=== PATIENT | male | born 1950 | race Caucasian/White ===

== ENCOUNTER 2024-07-13 17:13 | Inpatient (IN) | payer MEDICARE, SELFPAY ==
[2024-07-13] VITALS (9 sets, daily range): BP systolic 99–139; BP diastolic 54–69; PULSE 38–82; RESP 18–22; TEMP 36.8; O2SAT 97–99; BMI 45.0
--- NOTE | 2024-07-13 17:15 | ECG_ITS ---
[facility] Date: 2024-07-13 Pat Name: Benjamin Robles Department: Room: Gender: Male Young Adult Librarian: : 1950 Requested By: Iggy Ramos Order Number: [id number] Rizwana MD: Paul Knutson M.D. Measurements Intervals [place] Rate: 87 P: 95 ND: 232 QRS: -66 QRSD: 152 T: 71 QT: 442 QTc: 532 Interpretive Statements ELECTRONIC ATRIAL PACEMAKER RIGHT BUNDLE BRANCH BLOCK [120+ ms QRS DURATION, UPRIGHT V1, 40+ ms S IN I/aVL/V4/V5/V6] LEFT ANTERIOR FASCICULAR BLOCK [QRS AXIS <= -45, QR IN I, RS IN II] No previous ECG available for comparison Electronically Signed On 07-13-2024 20:03:11 IT WEB DEVELOPMENT CONSULTANT by Paul Knutson M.D. [id number]
--- NOTE | 2024-07-13 17:17 | XRR_ITS ---
PROCEDURE INFORMATION: Exam: XR Chest Exam date and time: 07/13/2024 5:30 PM Age: 74 years old Clinical indication: Shortness of breath; Prior surgery; Surgery date: 6+ months; Surgery type: Pacemaker, cabg; Additional info: Respiratory distress; Bradycardia. TECHNIQUE: Imaging protocol: Radiologic exam of the chest. Views: 1 view. COMPARISON: No relevant prior studies available. FINDINGS: Tubes, catheters and devices: Left-sided cardiac pacemaker device. Lungs: No focal consolidation. Pleural spaces: Unremarkable. No pleural effusion. No pneumothorax. Heart/Mediastinum: Prior TAVR. The TAVR cage appears unexpectedly superior in the cardiac shadow. Correlate with prior imaging of the chest if available. Bones/joints: Unremarkable. XR/XR chest 1V portable [id number] IMPRESSION: 1. Prior TAVR. The TAVR cage appears unexpectedly superior in the right upper cardiac shadow. Correlate with prior imaging of the chest if available. A chest with contrast can also be obtained to confirm positioning of the TAVR. 2. No focal consolidation.
--- NOTE | 2024-07-13 17:33 | ED_ITS ---
HPI - General Adult 2 General: Chief complaint: General Medical Stated complaint: migdalia; hypotension Time Seen by Provider: 07/13/24 17:16 Source: patient and EMS Mode of arrival: EMS Limitations: no limitations History of Present Illness: 74-year-old male states he just has not felt well the last 2 days states he is felt weak and had some fatigue he has had a history of a pacemaker per EMS patient was flown here they state that the original ground crew said he was hypotensive bradycardic EMS states that the whole time they have been with them he has had a normal heart rate and normal blood pressure has not been given any meds. Patient denies any chest pain or vomiting states he just has not felt well history of bilateral BKA as well Associated symptoms: Reports malaise; Deny chest pain, dyspnea, headache(s), nausea, rash or vomiting Review of Systems 2 Const: Reports: fatigue and malaise; Denies: fever(s), chills, body aches or change in appetite ENMT: Denies: throat pain or dental pain Card: Denies: chest pain Resp: Denies: dyspnea GI: Denies: abdominal pain, nausea, vomiting or diarrhea : Denies: dysuria Musc: Denies: neck pain or back pain Skin/Breast: Denies: rash Neuro: Denies: headache(s) Psych: Denies: depression [place]/Lymph: Denies: easy bruising All/Imm: Denies: urticaria Physical Exam 2 Const: COMMON NORMALS: patient oriented x3 HENMT: COMMON NORMALS: normocephalic and atraumatic HEAD & SCALP: n ormocephalic and atraumatic Eye: COMMON NORMALS: Equal, round and reactive pupils present and EOMs intact bilaterally PUPIL: Yes Equal, round and reactive pupils present Neck/C-Spine: COMMON NORMALS: full ROM and supple Chest: COMMONS NORMALS: normal inspection of the chest and normal palpation of entire chest wall Resp: COMMON NORMALS: normal respiratory effort, No retractions, No use of accessory muscles and clear to auscultation bilaterally AUSCULTATION: clear to auscultation bilaterally Cardio: COMMON NORMALS: regular rate, regular rhythm and No murmurs present (Cardio) RATE: regular rate RHYTHM: regular rhythm GI: COMMON NORMALS: Normal to inspection, nondistended, normoactive bowel sounds present, Soft to palpation, non-tender and no masses PALPATION: Yes Soft to palpation Extremity: COMMON NORMALS: normal to inspection and full ROM Neuro: COMMON NORMALS: patient oriented x3, moves all extremities and no focal motor deficits Psych: COMMON NORMALS: mental status grossly normal, Normal thought process present and cooperative THOUGHT PROCESS: Normal thought process present Skin: COMMON NORMALS: no rashes or lesions noted and no wounds GENERAL SKIN EXAM: no rashes or lesions noted Course 2 Vital Signs: Vital signs: Vital Signs Temperature 98.2 F 07/13/24 17:18 Pulse Rate 79 07/13/24 21:00 Respiratory Rate 20 H 07/13/24 17:49 Blood Pressure 99/54 07/13/24 21:00 Pulse Oximetry 98 07/13/24 21:00 Oxygen Delivery Me thod Room Air 07/13/24 21:00 MDM - General Adult Medical Decision Making Patient presents here with concerns of bradycardia at home states he has had heart rate in the 30s over the last 3 days pacemaker is functioning well here he was found to have an elevated BNP and pleural effusions I spoke to hospitalist will admit at this time. Medical Records I reviewed the patient's medical records. Lab Data 07/13/24 18:03 07/13/24 18:03 Radiology Impressions Chest X-Ray 07/13/24 17:17 IMPRESSION: 1. Prior TAVR. The TAVR cage appears unexpectedly superior in the right upper cardiac shadow. Correlate with prior imaging of the chest if available. A chest with contrast can also be obtained to confirm positioning of the TAVR. 2. No focal consolidation. Chest CTA 07/13/24 19:14 IMPRESSION: 1. Prior TAVR is in appropriate position. 2. No pulmonary emboli. 3. Large bilateral pleural effusions. COMMENTS: The presence of pulmonary emphysema on CT is an independent risk factor for lung cancer. In the absence of a history or active diagnosis of lung cancer, it is recommended that this patient with emphysema be evaluated for enrollment in a low dose CT lung cancer screening program. Laboratory Results WBC 7.00 10^3/uL (3.29-11.43) 07/13/24 18:03 RBC 4.22 10^6/uL (3.85-5.65) 07/13/24 18:03 Hgb 12.00 g/dL (11.27-16.99) 07/13/24 18:03 Hct 38.3 % (37-53) 07/13/24 18:03 MCV 90.8 fl (82-101) 07/13/24 18:03 MCH 28.4 pg (27-33) 07/13/24 18:03 MCHC 31.3 g/dL (30-55) 07/13/24 18:03 RDW 16.1 % (12.1-15.1) H 07/13/24 18:03 Plt Count 157 10^3/cmm (157-399) 07/13/24 18:03 MPV 9.9 fL (7.4-10.4) 07/13/24 18:03 Neut % (Auto) 53.7 % 07/13/24 18:03 Lymph % (Auto) 34.9 % 07/13/24 18:03 [place] % (Auto) 6.7 % 07/13/24 18:03 Eos % (Auto) 3.7 % 07/13/24 18:03 Baso % (Auto) 0.7 % 07/13/24 18:03 Neut # (Auto) 3.76 10^3/uL (1.8-7.7) 07/13/24 18:03 Lymph # (Auto) 2.4 10^3/uL (0.8-4.8) 07/13/24 18:03 [place] # (Auto) 0.5 10^3/uL (0.2-0.9) 07/13/24 18:03 Eos # (Auto) 0.3 10^3/uL (0.0-0.8) 07/13/24 18:03 Baso # (Auto) 0.1 10^3/uL (0.0-0.1) 07/13/24 18:03 Nucleated RBC % (auto) 0 % 07/13/24 18:03 Nucleated RBCs # 0.0 /100WBC 07/13/24 18:03 PT 13.00 SECONDS (12.1-14.9) 07/13/24 18:03 INR 0.96 (0.8-1.2) 07/13/24 18:03 Sodium 141 mmol/L (136-145) 07/13/24 18:03 Potassium 4.1 mmol/L (3.5-5.1) 07/13/24 18:03 Chloride 109 mmol/L (98-107) H 07/13/24 18:03 Carbon Dioxide 23 mmol/L (22-29) 07/13/24 18:03 Anion Gap 13.1 (5-19) 07/13/24 18:03 BUN 17 mg/dL (8-23) 07/13/24 18:03 Creatinine 0.6 mg/dL (0.7-1.2) L 07/13/24 18:03 GFR Calculation Not Reportable 07/13/24 18:03 Glucose 105 mg/dL (65-115) 07/13/24 18:03 Calculated Osmolality 294 mOsm/kg (285-295) 07/13/24 18:03 Calcium 9.0 mg/dL (8.5-10.5) 07/13/24 18:03 Total Bilirubin 0.3 mg/dL (0.15-1.2) 07/13/24 18:03 AST 13 U/L (0-40) 07/13/24 18:03 ALT 14 U/L (0-41) 07/13/24 18:03 Alkaline Phosphatase 89 U/L (40-130) 07/13/24 18:03 Troponin T Baseline 48 ng/L (0-15) H 07/13/24 18:03 Troponin T 120 Minute 42.70 ng/L (0-15) H 07/13/24 20:17 Delta Troponin T -5.30 ABS# (0-10) L 07/13/24 20:17 NT-Pro-B Natriuret Pep 71885 pg/mL (0-450) H 07/13/24 18:03 Total Protein 6.0 g/dL (6.6-8.7) L 07/13/24 18:03 Albumin 3.5 g/dL (3.5-5.2) 07/13/24 18:03 Globulin 2.5 g/dL (1.3-4.6) 07/13/24 18:03 Coronavirus (PCR) Negative (Negative) 07/13/24 18:36 Influenza A (PCR) Negative (Negative) 07/13/24 18:36 Influenza Type B (PCR) Negative (Negative) 07/13/24 18:36 RSV (PCR) Negative (Negative) 12/29/24 18:36 All radiology interpretation(s) finalized by discharge EKG Data EKG 1: I personally reviewed and interpreted this EKG as follows: EKG interpretation date: 07/13/24 EKG interpretation time: 17:15 Interpretation: paced hr [address] elevation qrs 152 [id number] Computer generated interpretation: Chest X-Ray 07/13/24 17:17 IMPRESSION: 1. Prior TAVR. The TAVR cage appears unexpectedly superior in the right upper cardiac shadow. Correlate with prior imaging of the chest if available. A chest with contrast can also be obtained to confirm positioning of the TAVR. 2. No focal consolidation. Chest CTA 07/13/24 19:14 IMPRESSION: 1. Prior TAVR is in appropriate position. 2. No pulmonary emboli. 3. Large bilateral pleural effusions. COMMENTS: The presence of pulmonary emphysema on CT is an independent risk factor for lung cancer. In the absence of a history or active diagnosis of lung cancer, it is recommended that this patient with emphysema be evaluated for enrollment in a low dose CT lung cancer screening program. Discharge Plan Discharge Patient Disposition: Admitted As Inpatient Clinical Impression: Pleural effusion, CHF (congestive heart failure), Bradycardia Condition: Stable Coding Level of Care Code ED International Marketing Coordinator for Quintin Ornelas
[2024-07-13 18:17] LABS: Basophils # 0.1 10^3/uL (0.0-0.1); Basophils % 0.7 %; Eosinophils # 0.3 10^3/uL (0.0-0.8); Eosinophils % 3.7 %; Hematocrit 38.3 % (37-53); Lymphocytes # 2.4 10^3/uL (0.8-4.8); Lymphocytes % 34.9 %; Mean Corpuscular HGB Conc 31.3 g/dL (30-55); Mean Corpuscular Hemoglobin 28.4 pg (27-33); Mean Corpuscular Volume 90.8 fl (82-101); Mean Platelet Volume 9.9 fL (7.4-10.4); Monocytes # 0.5 10^3/uL (0.2-0.9); Monocytes % 6.7 %; Neutrophils # 3.76 10^3/uL (1.8-7.7); Neutrophils % 53.7 %; Nucleated Red Blood Cells % 0 %; Platelet Count 157 10^3/cmm (157-399); Red Blood Count 4.22 10^6/uL (3.85-5.65); Red Cell Distribution Width 16.1 % (12.1-15.1)
[2024-07-13 18:30] LABS: INR 0.96 (0.8-1.2)
[2024-07-13 18:36] LABS: Troponin(5th) Baseline 48 ng/L (0-15)
[2024-07-13 18:49] LABS: Alanine Aminotransferase 14 U/L (0-41); Albumin Level 3.5 g/dL (3.5-5.2); Alkaline Phosphatase 89 U/L (40-130); Anion Gap 13.1 (5-19); Aspartate Amino Transferase 13 U/L (0-40); Blood Urea Nitrogen 17 mg/dL (8-23); Carbon Dioxide 23 mmol/L (22-29); Chloride 109 mmol/L (98-107); Creatinine Clr Calc Pharmacy 90.7189; Globulin 2.5 g/dL (1.3-4.6); Glucose 105 mg/dL (65-115); NT Pro B Type Natriuretic Pept 11071 pg/mL (0-450); Osmolality Calculated 294 mOsm/kg (285-295); Potassium 4.1 mmol/L (3.5-5.1); Sodium 141 mmol/L (136-145); Total Bilirubin 0.3 mg/dL (0.15-1.2)
--- NOTE | 2024-07-13 19:14 | CTR_ITS ---
PROCEDURE INFORMATION: Exam: CTA Chest With Contrast Exam date and time: 07/13/2024 7:54 PM Age: 74 years old Clinical indication: Chest pressure; Prior surgery; Surgery date: 6+ months; Surgery type: Pacer. Tavr. Lt humeral fixation; Patient HX: Chest pain with hypotension; Additional info: Cp/ tavr positioning TECHNIQUE: Imaging protocol: Computed tomographic angiography of the chest with contrast. Exam focused on the arteries. 3D rendering (Not supervised by radiologist): MIP and/or 3D reconstructed images were created by the technologist. Radiation optimization: All CT scans at this facility use at least one of these dose optimization techniques: automated exposure control; mA and/or kV adjustment per patient size (includes targeted exams where dose is matched to clinical indication); or iterative reconstruction. Contrast material: OMNI 350; Contrast volume: 71 ml; Contrast route: INTRAVENOUS (IV); COMPARISON: CR (CHEST, ) 07/13/2024 5:30 PM RADIATION DOSE METRICS: Total DLP (mGy-cm): 517.35 FINDINGS: Pulmonary arteries: No pulmonary emboli. Great vessels off aortic arch: Severe stenosis secondary to calcified plaque at the origin of the right brachiocephalic artery, left subclavian artery and left carotid artery. Aorta: Unremarkable. No aortic aneurysm. No aortic dissection. Lungs: Severe emphysematous changes throughout both lungs with an upper lobe predominance. Pleural spaces: Large bilateral pleural effusions. Heart: Prior TAVR in appropriate position. Lymph nodes: Unremarkable. No enlarged lymph nodes. Bones/joints: Prior median sternotomy and CABG. Soft tissues: Unremarkable. CT/CT angio chest PE protcl [id number] IMPRESSION: 1. Prior TAVR is in appropriate position. 2. No pulmonary emboli. 3. Large bilateral pleural effusions. COMMENTS: The presence of pulmonary emphysema on CT is an independent risk factor for lung cancer. In the absence of a history or active diagnosis of lung cancer, it is recommended that this patient with emphysema be evaluated for enrollment in a low dose CT lung cancer screening program.
--- NOTE | 2024-07-13 19:15 | ECG_ITS ---
[facility] Test Date: 2024-07-13 Pat Name: Benjamin Robles Department: Room: Gender: Male Icu Specialist: : 1950 Requested By: Iggy Ramos Order Number: [id number] Rizwana MD: Paul Knutson M.D. Measurements Intervals [place] Rate: 85 P: 94 MN: 225 QRS: -65 QRSD: 149 T: 71 QT: 459 QTc: 549 Interpretive Statements ELECTRONIC ATRIAL PACEMAKER RIGHT BUNDLE BRANCH BLOCK [120+ ms QRS DURATION, UPRIGHT V1, 40+ ms S IN I/aVL/V4/V5/V6] LEFT ANTERIOR FASCICULAR BLOCK [QRS AXIS <= -45, QR IN I, RS IN II] MODERATE T-WAVE ABNORMALITY, CONSIDER LATERAL ISCHEMIA [-0.1+ mV T-WAVE IN I/aVL/V5/V6] Compared to ECG 07/13/2024 17:15:37 T-wave abnormality now present Possible ischemia now present Electronically Signed On 07-13-2024 20:10:25 MICROSOFT EXCHANGE ARCHITECT by Paul Knutson M.D. [id number]
[2024-07-13 19:25] LABS: Covid PCR NEGATIVE (Negative); Influenza A NEGATIVE (Negative); Influenza B NEGATIVE (Negative); Respiratory Syncytial Virus Ce NEGATIVE (Negative)
[2024-07-13] MEDS: iohexol 350 mg/mL 500 mL Btl (per mL) IV (19:58)
--- NOTE | 2024-07-13 21:15 | P.HP_ITS ---
Providers/Chief Complaint 2 Admitting Physician: Vida Thomas MD Chief Complaint: migdalia; hypotension History of Present Illness Reference Services Head - Dr. Moore The patient's daughter was at bedside and called her mother, the patient's , to help provide some history. Patient is not the best historian. Although patient's was called, perhaps it is because it is late at night, but the patient's and daughter were not the most exact historians. Benjamin Robles is a 74 year old male w/ 2v CABG, TAVR s/p valve replacement, CAD s/p stents, b/l AKA in 07/2023 at [place], [place], [facility] who presents to [facility] on 07/13/2024 for low Heart rate. The patient states that his home health nurse was at his hous on Wednesday 07/11 and noticed that his HR was 36 and referred him to the hospital. He went to [facility] where he was evaluated and told that his HR was fine and that he was just constipated. The patient states that he was feeling bad on Sunday and it worsened on Sunday and it showed that his HR was between 38 & 44, so his called EMS who had him transported here via helicopter. Associated w/ his malaise is SOB, abd pain, & nausea. He denies palpitations, dizziness, light headedness, syncope, coughing, wheezing, vomiting, melena, hematochezia, dysuria, hematuria. He endorses non-pleuritic, non-radiating intermittent CP that occurs once a week and resolves w/ SL NTG. He tells me that he used to get his care primarily at [facility] in [place] and at [facility], where he used to see the current Reference Services Head. He has not followed up with Cardiology his Reference Services Head, who now works here, left [facility]. According to the patient's , the patient's pacemaker was last replaced 12- 13yrs ago. In the ED, his vital signs were significant for heart rate as low as 38 and a RR of 22. His BP remained within normal limits. His labs were significant for a BNP of 11,000. His EKG showed paced rhythm with [address] depression in V4 and V5. He has a QTc of 532. His Trop T were mildly elevated. His CXR was done that was negative for any focal consolidations, but there was concern for the location of his TAVR, so a CT chest was done. The CT chest showed that his TAVR was in the appropriate position. It also showed severe emphysematous changes throughout the lungs with an upper lobe predominance, and large bilateral pleural effusions. He was given 60 mg furosemide IVP x 1 and admitted. On admission, he had multiple episodes of hypotension, and was given a total of 3 boluses of NS 500 for the total of 1500 cc of NS. Each time his BP and HR improved. Daughter feels that his BP did not drop until he got the Lasix. Review of Systems 2 Const: Denies: fever(s) or chills Eyes: Denies: change in vision ENMT: Denies: odynophagia, ear or mastoid pain, ear discharge, nasal discharge or nasal congestion Card: Reports: chest pain; Denies: palpitations, lightheadedness, syncope or pre-syncope Resp: Reports: dyspnea; Denies: productive cough, non-productive cough or wheezing GI: Reports: abdominal pain and nausea; Denies: vomiting, diarrhea, constipation, hematochezia or melena : Denies: difficulty urinating, dysuria, urinary frequency, urinary urgency or hematuria Musc: Reports: back pain Skin/Breast: Reports: new lesions (on his back and buttocks); Denies: rash Neuro: Denies: headache(s) or dizziness Psych: Denies: anxiety, depression, suicidal ideation or homicidal ideation Endo: Reports: cold intolerance and heat intolerance Austin/Lymph: Reports: easy bruising and easy bleeding All/Imm: Denies: food intolerance Medications/Allergies Home Medications Medication Instructions Recorded Confirmed Last Taken Type albuterol 90 mcg/actuation aerosol 90 mcg inhalation Q6H PRN 07/13/24 07/13/24 Unknown History inhaler Shortness Of Breath Or Wheezing aspirin 81 mg tablet,delayed 81 mg PO DAILY 07/13/24 07/13/24 Unknown History release carvedilol 3.125 mg tablet 3.125 mg PO BID 07/13/24 07/13/24 Unknown History citalopram 20 mg tablet 20 mg PO DAILY 07/13/24 07/13/24 Unknown History clopidogrel 75 mg tablet 75 mg PO DAILY 07/13/24 07/13/24 Unknown History diphenhydramine 25 1 tab PO BEDTIME PRN Insomnia 07/13/24 07/13/24 Unknown History mg-acetaminophen 500 mg tablet (Tylenol PM Extra Strength) ezetimibe 10 mg tablet 10 mg PO BEDTIME 07/13/24 07/13/24 Unknown History famotidine 40 mg tablet 40 mg PO DAILY 07/13/24 07/13/24 Unknown History fenofibrate 160 mg tablet 160 mg PO BEDTIME 07/13/24 07/13/24 Unknown History ferrous sulfate 324 mg (65 mg 324 mg PO DAILY 07/13/24 07/13/24 Unknown History iron) tablet,delayed release furosemide 40 mg tablet 40 mg PO DAILY 07/13/24 07/13/24 Unknown History hydrocodone 10 mg-acetaminophen 2 tab PO Q6H PRN Pain 07/13/24 07/13/24 Unknown History 325 mg tablet menthol 0.44 %-zinc oxide 20.6 % 1 applic topical DAILY PRN skin 07/13/24 07/13/24 Unknown History topical ointment (Calmoseptine) irritation midodrine 5 mg tablet 5 mg PO TID 07/13/24 07/13/24 Unknown History nitroglycerin 0.4 mg sublingual 0.4 mg sublingual Q5MIN PRN Chest 07/13/24 07/13/24 Unknown History tablet (Nitrostat) Pain ondansetron 4 mg disintegrating 4 mg PO Q4H PRN Nausea And Vomiting 07/13/24 07/13/24 Unknown History tablet pantoprazole 40 mg tablet,delayed 40 mg PO DAILY 07/13/24 07/13/24 Unknown History release (Protonix) pentoxifylline 400 mg 400 mg PO TID 07/13/24 07/13/24 Unknown History tablet,extended release pregabalin 100 mg capsule 100 mg PO TID 07/13/24 07/13/24 Unknown History ranolazine 500 mg tablet,extended 500 mg PO BID 07/13/24 07/13/24 Unknown History release,12 hr rosuvastatin 40 mg tablet 40 mg PO BEDTIME 07/13/24 07/13/24 Unknown History tamsulosin 0.4 mg capsule 0.4 mg PO DAILY 07/13/24 07/13/24 Unknown History tiotropium bromide 2.5 2 puff inhalation DAILY 07/13/24 07/13/24 Unknown History mcg/actuation mist for inhalation Allergies Allergy/AdvReac Type Severity Reaction Status Date / Time ticagrelor Allergy Unknown unknown Verified 07/14/24 03:33 gemfibrozil Allergy Unknown Verified 07/14/24 03:33 Lorazepam Allergy Unknown unknown Uncoded 07/14/24 03:33 Sacubitril/Valsartan Allergy Unknown unknown Uncoded 07/14/24 03:33 PFSH Acute 2 PFSH: Medical History (Updated 07/14/24 @ 05:43 by Vida Thomas MD) COPD (chronic obstructive pulmonary disease) Muscular dystrophy Surgical History (Updated 07/14/24 @ 05:41 by Vida Thomas MD) History of surgery on arm Hx of CABG Family History (Updated 07/14/24 @ 03:40 by Vida Thomas MD) Father Cancer Mother Heart disease Brother Lung cancer Social History (Updated 07/14/24 @ 03:38 by Vida Thomas MD) Smoking and tobacco/nicotine status: current every day tobacco/nicotine user Alcohol intake: former Year of sobriety/quit date alcohol: 2008 Substance/Drug Use: never Additional social history: started 1ppd at age 12 until 1992. Started again 1ppd in 2009 to current. Vitals/I&O/Wt Last Vital Signs Temp 98.2 F 07/13/24 17:18 Pulse 79 07/13/24 21:00 Resp 20 H 07/13/24 17:49 BP 99/54 07/13/24 21:00 Pulse Ox 98 07/13/24 21:00 O2 Del Method Room Air 07/13/24 21:00 07/13/24 07/13/24 07/13/24 06:59 14:59 22:59 Intake Total 0 / 0 Balance 0 / 0 Weight last 48 hrs Weight 81.647 kg Physical Exam 2 Const: GENERAL APPEARANCE: cooperative and comfortable O RIENTATION/CONSCIOUSNESS: Yes awake, Yes oriented to person, Yes oriented to place and Yes oriented to time HENMT: HEAD & SCALP: normocephalic and atraumatic NOSE: Normal external nose present EXTERNAL EAR: Yes external ears normal MOUTH: Normal oral and palatal mucosa present Eye: OTHER: PEERL, EOMI, normal conjunctiva b/l Neck/C-Spine: GENERAL: Yes normal visual inspection and Yes trachea midline THYROID: Thyroid normal CERVICAL SPINE: Yes cervical ROM normal OTHER: R. carotid bruit Lymph: OTHER: No cervical or supraclavicular LAD Resp: AUSCULTATION: not clear to auscultation bilaterally Cardio: OTHER: Regular rate, Irregular Rhytm, no m/r/g or clicks GI: OTHER: BS +, NT, ND, no guarding, no rigidity, no rebound tenderness, no hepatosplenomegaly. Extremity: OTHER: b/l AKA w/ healed stumps Skin: GENERAL SKIN EXAM: no rashes or lesions noted Data 07/13/24 18:03 07/13/24 18:03 A&P Assessment and plan (1) Hypotension: (2) Bradycardia: (3) Pleural effusion: Plan Benjamin Robles is a 74 year old male w/ 2v CABG, TAVR s/p valve replacement, CAD s/p stents, b/l AKA in 07/2023 at [place], [place], due who presents to [facility] on 07/13/2024 for low Heart rate. #Hypotension - Unclear etiology: F/u ECHO and BCx ordered. - Continue giving fluid boluses. #Bradycardia - Possibly due to End of life of pacemaker? -Interrogate the pacemaker: Per his night admitting nurse, [employer], [place] [employer], [place] interrogated were attempted in the ED with no success. Daughter says [employer]? . Will need to obtain outside records. -Cardiology consult in the AM. #CAD s/p stents: Patient states 4-5 stents, but the states 3-4 stents. #HTN #HLD #CHF : Unclear type. F/u ECHO - Hold all anti-hypertensives. -Strict I's and O's. #Peripheral Vascular Disease #Valve replacement: The patient thinks that it is aortic valve, but the states that it is mitral valve. Again follow-up the echo. #B/l Pleural effusions -Defer to day hospitalist to order thoracentesis. #Chronic back pain despite #Hx of L-spine Surgery - Dilaudid ordered #R. Carotid Bruit - b/l Carotid endarterectomy: Patient tells me that he had a bilateral carotid endarterectomy, but he is unable to tell me what was done on each side. #Muscular dystrophy. DVT ppx: nothing for now until Thoracentesis. Attestations 2 Medical Necessity Statement*: The patient needs to be hospitalized for greater than 2 midnights for his hypotension of unclear etiology bradycardia, with possible need for replacement of his pacemaker, and bilateral pleural effusions. Time Spent in Patient Care: Greater than 70 minutes was spent on attempting to obtain a detailed history from patient and his family members, physical exam, lab/image review, formulation of plan and coordination of care. Coding Level of Care Code 29581 Diagnoses Hypotension I95.9 Bradycardia R00.1 Pleural effusion J90
[2024-07-13] MEDS: FUROsemide 10 mg/mL SDV 10mL 60 MG IVP (22:07)
[2024-07-13 23:18] LABS: Bilirubin Urine Negative (Negative); Blood Urine Negative (Negative); Glucose Urine UA Negative (Normal); Ketones Urine Negative (Negative); Leukocyte Esterase Urine Negative (Negative); Nitrate Urine Negative (Negative); Protein Urine Negative (Negative); Urine Appearance Clear (CLEAR); Urine Color Yellow (Yellow); pH Urine 5.5 (5-7)
[2024-07-13 23:23] LABS: Add Urine Microscopic? YES; Bacteria Urine None Seen /hpf; Hyaline Casts Urine 0-4 /lpf; RBC Urine 0-2 /hpf (0-2); Squamous Epithelial Cell Urine 0-5 /hpf (0-5); WBC Urine 0-5 /hpf (0-5)
[2024-07-13] MEDS: sodium chloride 0.9% 500 ML 999 ML IV (23:50)
--- NOTE | 2024-07-13 23:55 | ECG_ITS ---
[facility] Test Date: 2024-07-13 Pat Name: Benjamin Robles Department: Room: 106 Gender: Male Customer Program Manager: : 1950 Requested By: Iggy Ramos Order Number: [id number] Rizwana MD: Paul Knutson M.D. Measurements Intervals [place] Rate: 93 P: 208 PA: 261 QRS: -68 QRSD: 150 T: 72 QT: 434 QTc: 541 Interpretive Statements ELECTRONIC ATRIAL PACEMAKER RIGHT BUNDLE BRANCH BLOCK [120+ ms QRS DURATION, UPRIGHT V1, 40+ ms S IN I/aVL/V4/V5/V6] LEFT ANTERIOR FASCICULAR BLOCK [QRS AXIS <= -45, QR IN I, RS IN II] Compared to ECG 07/13/2024 19:15:13 T-wave abnormality no longer present Possible ischemia no longer present Electronically Signed On 07-14-2024 16:52:11 DIRECTOR OF RESIDENCE LIFE by Paul Knutson M.D. [id number]
[2024-07-14] VITALS (222 sets, daily range): BP systolic 63–121; BP diastolic 42–95; PULSE 73–115; RESP 6–52; TEMP 36.1–36.6; O2SAT 91–100
[2024-07-14 00:42] LABS: Troponin 5 6HR 44.73 ng/L (0-15)
[2024-07-14 00:46] LABS: Troponin 5 6HR Delta -3.27 ng/L (0-12)
[2024-07-14] MEDS: sodium chloride 0.9% 500 ML 999 ML IV ×2 (02:40→07:26)
[2024-07-14] MEDS: sodium chloride 0.9% 1,000 ML 500 ML IV (02:59)
[2024-07-14] MEDS: HYDROmorphone 1 mg/mL INJ 1 mL IVP ×2 (03:51→15:12)
--- NOTE | 2024-07-14 04:02 | ECG_ITS ---
[facility] Date: 2024-07-14 Pat Name: Benjamin Robles Department: Room: 106 Gender: Male Equipment Inspector: : 1950 Requested By: Vida Thomas Order Number: [id number] Rizwana MD: Paul Knutson M.D. Measurements Intervals [place] Rate: 75 P: 95 [place]: 213 QRS: -74 QRSD: 150 T: 81 QT: 475 QTc: 533 Interpretive Statements ELECTRONIC ATRIAL PACEMAKER RIGHT BUNDLE BRANCH BLOCK [120+ ms QRS DURATION, UPRIGHT V1, 40+ ms S IN I/aVL/V4/V5/V6] LEFT ANTERIOR FASCICULAR BLOCK [QRS AXIS <= -45, QR IN I, RS IN II] Compared to ECG 07/13/2024 23:55:01 No significant changes Electronically Signed On 07-14-2024 16:49:18 PATTERN AND CHAIN MAKER by Paul Knutson M.D. [email or web address]
[2024-07-14] MEDS: pantoprazole 40 mg SDV IVP (04:23)
--- NOTE | 2024-07-14 05:30 | USCV_ITS ---
Benjamin Robles Age: 74 Gender: M : 1950 Exam Date: 07/14/2024 12:41 Ordering Phys: Vida Thomas MD Technologist: CT Exam Location: [facility] [place] Indication: bradycardia,cad,avr BP: 121 / 95 HR: 74 Rhythm: Sinus Technical Quality: Technically difficult study MEASUREMENTS (Male / Female) Normal Values 2D ECHO LVOT Diameter 2.0 cm LV Ejection Fraction MOD 4C 30.5 % LV Ejection Fraction MOD 2C 31.7 % LV Ejection Fraction 2C AL 31.7 % LA Diameter 4.0 cm RA Systolic Volume 4C AL 63.8 ml RA Systolic Volume 4C MOD 62.0 ml LA Sys Volume AL 58.8 cm cubed LA Sys Volume Index AL 30.9 cm cubed/m squared Aorta at Sinotubular Diameter 1.6 cm DOPPLER AV Peak Velocity 102.0 cm/s LVOT Peak Velocity 72.0 cm/s AV Area Cont Eq vti 2.4 cm squared AV Area Cont Eq pk 2.2 cm squared MV Peak Velocity 101.0 cm/s MV Area PHT 4.2 cm squared Mitral E to A Ratio 1.3 TV Peak E Velocity 79.0 cm/s PV Peak Velocity 83.5 cm/s FINDINGS Left Ventricle Diffuse hypokinesia of the left ventricle with and ejection fraction of 32%Grade III/IV diastolic dysfunction (restrictive filling pattern), severely elevated filling pressures. The LV cavity appears to be moderately dilated Right Ventricle Catheter/pacemaker wire in the right ventricular cavity. Right Atrium Catheter/pacemaker wire in the right atrial appendage. Left Atrium Mildly increased left atrial size. Mitral Valve Mild mitral annular calcification. Mild mitral valve regurgitation. Aortic Valve [id number] aortic valve regurgitation. Tricuspid Valve No gross abnormalities noted Pulmonic Valve Pulmonic valve not well visualized. Pericardium Normal pericardium without effusion. Aorta Normal ascending aorta dimension. IVC Inferior vena cava not visualized. CONCLUSIONS Diffuse hypokinesia of the left ventricle with an ejection fraction of 32%. Grade III/IV diastolic dysfunction (restrictive filling pattern), severely elevated filling pressures. The LV cavity appears to be moderately dilated. Mildly increased left atrial size. Mild mitral annular calcification. Mild mitral valve regurgitation. Srdm-[id number]-nomyibld aortic valve regurgitation. There is no pericardial effusion. There are no intracardiac masses. No similar previous studies are available for comparison Dr Cal Foote MD FACC (Electronically Signed) Final Date: 15 July 2024 01:11 S
--- NOTE | 2024-07-14 07:04 | PC.NURSE ---
notified Dr Thomas of low bp, 500 cc bolus ordered, bp improved initially but dropped again, 2nd 500 cc bolus ordered and given then 1000 cc bolus run over 2 hours, bp initially improved with fluids but dropped to 71/49, notified Dr Thomas of continued low bp, bolus ordered, report given to Marta OLGUIN
[2024-07-14] MEDS: DOPamine drip 400 MG/250 ML PREMIX 15.43 MG IV (07:31)
--- NOTE | 2024-07-14 07:33 | XR_ITS ---
WS: [id number] Portable AP upright chest, 07/14/2024 Clinical Data: sob Comparison: Portable chest, 07/13/2024 Findings: The lung bases show slight increase in opacity which could represent atelectasis, pneumonia and/or effusion. The heart is slightly enlarged. The TAVR cage remains in the same position. Cardiac pacemaker is not changed. There are midline sternotomy sutures. The aortic arch and descending thora cic aorta show calcification and tortuosity. No pneumothorax is seen. Monitor leads are on the chest wall. XR/XR chest 1V portable [id number] Impression: 1. No change in the position of TAVR cage. 2. Slight increase in bibasilar opacities. 3. Atherosclerosis.
--- NOTE | 2024-07-14 07:35 | PC.NURSE ---
patient to transfer to ICU 11, report given to ICU nurse
[2024-07-14 08:07] LABS: NT Pro B Type Natriuretic Pept 9887 pg/mL (0-450)
[2024-07-14] MEDS: ondansetron 2 mg/ML SDV 2 mL 4 MG IVP ×2 (08:24→20:23)
[2024-07-14] MEDS: aspirin 81 mg EC Tablet PO (08:26)
[2024-07-14] MEDS: clopidogrel 75 mg Tablet PO (08:26)
[2024-07-14] MEDS: docusate sodium 100 mg Capsule 200 MG PO (08:26)
[2024-07-14] MEDS: midodrine 5 mg TABLET 10 MG PO ×3 (08:26→23:25)
--- NOTE | 2024-07-14 08:30 | PC.NURSE ---
Patient arrived to ICU at approximately 0730.
--- NOTE | 2024-07-14 08:58 | P.CONIM_ITS ---
Documented by User: Cal Foote MD 07/14/24 17:35 Providers/Reason For Consult 2 Consulting Physician/Specialty*: LUIS DANIEL Foote MD /cardiology Reason for Consult*: Patient with permanent pacemaker, has episodes of bradycardia Requesting Physician: Dr. Lee Attending Physician: Ramy Lee MD History of Present Illness History of Present Illness This is a very pleasant 74-year-old gentleman with a history of two-vessel CABG, status post TAVR, CAD status post stents, bilateral AKA, and history of permanent pacemaker placement. He came into the ED yesterday for lethargy and low heart rate. Patient is here with his granddaughter. He is a poor historian. He came in to the emergency room with complaints of general malaise and lethargy that have been going on for several days. In the emergency room it was said that the patient had a heart rate as low as 38 although we do not have any strip or EKG confirming this. He stated his home health nurse came out to visit and he was found to have a HR at 36 and he was referred to the hospital. He was seen at [facility] and was notified his heart rate was ok. After this, he had another episode of low HR per patient family between 38 and 44-on the pulse oximeter?. And EMS had him transported here via helicopter. Vital signs were stable otherwise. He did have multiple episodes of hypotension on admission and was given a total of 3 boluses. After that his blood pressure and heart rate improved. Patient's BNP was elevated to 11,000. EKG showed paced rhythm with a small amount of ST depression in V4 and V5. Troponin slightly elevated at 48-42.7-44.73 delta negative. Echo was ordered. CT of the chest was done that showed TAVR valve was in the appropriate position. It also showed bilateral pleural effusions. He was given 60 mg of Lasix which was thought to possibly have contributed to the hypotension. He was placed on dobutamine drip, and bp improved. He is off of this now. Patient tells me his main complaint has been lethargy. He denies any dizziness. He has had some nausea with dry heaving. He states that he does have a history of chronic chest pressure that occurs twice per week improved with nitro. He states this is at the center of his chest and more of a pressure. At this time he has no chest pain. He has a Biotronik pacemaker, was implanted in 2012. This was interrogated at bedside. He is atrial paced 97% of the time. No episodes of bradycardia noted. The pacemaker seems to have appropriate sensing and pacing function. The lead also seems to have normal impedance. Patient is known to have severe peripheral artery disease and had to undergo above-knee amputation bilaterally this year, 3 months apart Review of Systems 2 Narrative: GENERAL: The patient is alert and oriented times three. Not in any acute distress. Lethargy and weakness for couple of months. No fever, chills or cough HEENT: No significant pallor, icterus or lymphadenopathy.Oral cavity: There are no mucous membrane lesions. NECK: Trachea appears to be central. No masses noted. No JVD or thyromegaly appreciated. RESPIRATORY: Chest is symmetrical. No intercostals muscle retraction or any accessory muscle activation. There is no chest wall tenderness. Breath sounds are heard bilaterally. No rales or rhonchi heard. No evidence of any consolidation. BREASTS: Deferred. HEART: The heart sounds are normal. No S3 or S4. No significant murmurs. No pericardial rub ABDOMEN: No vessel pulsations or distention. No tenderness. No organomegaly appreciated. Bowel sounds are normally heard. : Deferred. RECTAL: Deferred. LYMPHATIC: No lymphadenopathy noted in the neck. EXTREMITIES: No edema or cyanosis. No clubbing. MUSCULOSKELETAL: No acute joint deformities or swelling SKIN: There are no significant rashes or ecchymosis NEUROPSYCHIATRIC: The patient is alert and oriented x3. Appears to be in a good mood. No tremors or rigidity noted. Medications/Allergies Home Medications Medication Instructions Recorded Confirmed Last Taken Type albuterol 90 mcg/actuation aerosol 90 mcg inhalation Q6H PRN 07/13/24 07/13/24 Unknown History inhaler Shortness Of Breath Or Wheezing aspirin 81 mg tablet,delayed 81 mg PO DAILY 07/13/24 07/13/24 Unknown History release carvedilol 3.125 mg tablet 3.125 mg PO BID 07/13/24 07/13/24 Unknown History citalopram 20 mg tablet 20 mg PO DAILY 07/13/24 07/13/24 Unknown History clopidogrel 75 mg tablet 75 mg PO DAILY 07/13/24 07/13/24 Unknown History diphenhydramine 25 1 tab PO BEDTIME PRN Insomnia 07/13/24 07/13/24 Unknown History mg-acetaminophen 500 mg tablet (Tylenol PM Extra Strength) ezetimibe 10 mg tablet 10 mg PO BEDTIME 07/13/24 07/13/24 Unknown History famotidine 40 mg tablet 40 mg PO DAILY 07/13/24 07/13/24 Unknown History fenofibrate 160 mg tablet 160 mg PO BEDTIME 07/13/24 07/13/24 Unknown History ferrous sulfate 324 mg (65 mg 324 mg PO DAILY 07/13/24 07/13/24 Unknown History iron) tablet,delayed release furosemide 40 mg tablet 40 mg PO DAILY 07/13/24 07/13/24 Unknown History hydrocodone 10 mg-acetaminophen 2 tab PO Q6H PRN Pain 07/13/24 07/13/24 Unknown History 325 mg tablet menthol 0.44 %-zinc oxide 20.6 % 1 applic topical DAILY PRN skin 07/13/24 07/13/24 Unknown History topical ointment (Calmoseptine) irritation midodrine 5 mg tablet 5 mg PO TID 07/13/24 07/13/24 Unknown History nitroglycerin 0.4 mg sublingual 0.4 mg sublingual Q5MIN PRN Chest 07/13/24 07/13/24 Unknown History tablet (Nitrostat) Pain ondansetron 4 mg disintegrating 4 mg PO Q4H PRN Nausea And Vomiting 07/13/24 07/13/24 Unknown History tablet pantoprazole 40 mg tablet,delayed 40 mg PO DAILY 07/13/24 07/13/24 Unknown History release (Protonix) pentoxifylline 400 mg 400 mg PO TID 07/13/24 07/13/24 Unknown History tablet,extended release pregabalin 100 mg capsule 100 mg PO TID 07/13/24 07/13/24 Unknown History ranolazine 500 mg tablet,extended 500 mg PO BID 07/13/24 07/13/24 Unknown History release,12 hr rosuvastatin 40 mg tablet 40 mg PO BEDTIME 07/13/24 07/13/24 Unknown History tamsulosin 0.4 mg capsule 0.4 mg PO DAILY 07/13/24 07/13/24 Unknown History tiotropium bromide 2.5 2 puff inhalation DAILY 07/13/24 07/13/24 Unknown History mcg/actuation mist for inhalation Allergies Allergy/AdvReac Type Severity Reaction Status Date / Time ticagrelor Allergy Unknown unknown Verified 07/14/24 03:33 gemfibrozil Allergy Unknown Verified 07/14/24 03:33 Lorazepam Allergy Unknown unknown Uncoded 07/14/24 03:33 Sacubitril/Valsartan Allergy Unknown unknown Uncoded 07/14/24 03:33 Current Medications Generic Name Dose Route Start Last Admin Trade Name Freq PRN Reason Stop Dose Admin Aspirin 81 mg 07/14/24 09:00 07/14/24 08:26 Aspirin 81 Mg Ec Tablet PO 81 mg DAILY MO Administration Clopidogrel Bisulfate 75 mg 07/14/24 09:00 07/14/24 08:26 Clopidogrel 75 Mg Tablet PO 75 mg DAILY MO Administration Docusate Sodium 200 mg 07/14/24 09:00 07/14/24 08:26 Docusate Sodium 100 Mg Capsule PO 200 mg DAILY MO Administration Hydromorphone HCl 1 mg 07/14/24 03:38 07/14/24 03:51 Hydromorphone 1 Mg/Ml Inj 1 Ml IVP 1 mg Q4H PRN Administration SEVERE PAIN Dopamine HCl/Dextrose 400 mg in 250 mls @ 15.428 mls/hr 07/14/24 07:30 07/14/24 08:31 Intropin Drip IV 0 mcg/kg/min CONT MO 0 mls/hr Titration Protocol 5 MCG/KG/MIN Midodrine 10 mg 07/14/24 07:30 07/14/24 08:26 Midodrine 5 Mg Tablet PO 10 mg Q8H MO Administration Ondansetron HCl 4 mg 07/14/24 08:13 07/14/24 08:24 Ondansetron 2 Mg/Ml Sdv 2 Ml IVP 4 mg Q8H PRN Administration NAUSEA AND VOMITING Pantoprazole Sodium 40 mg 07/14/24 05:00 07/14/24 04:23 Pantoprazole 40 Mg Sdv IVP 40 mg Q24H MO Administration PFSH Acute 2 PFSH: Medical History (Updated 07/14/24 @ 17:20 by Cal Foote MD) COPD (chronic obstructive pulmonary disease) Muscular dystrophy Surgical History (Updated 07/14/24 @ 05:41 by Vida Thomas MD) History of surgery on arm Hx of CABG Family History (Updated 07/14/24 @ 03:40 by Vida Thomas MD) Father Cancer Mother Heart disease Brother Lung cancer Social History (Updated 07/14/24 @ 03:38 by Vida Thomas MD) Smoking and tobacco/nicotine status: current every day tobacco/nicotine user Alcohol intake: former Year of sobriety/quit date alcohol: 2008 Substance/Drug Use: never Additional social history: started 1ppd at age 12 until 1992. Started again 1ppd in 2009 to current. Vitals/I&O/Wt Last Vital Signs Temp 97.7 F 07/14/24 04:00 Pulse 115 H 07/14/24 08:10 Resp 24 H 07/14/24 08:10 BP 113/72 07/14/24 08:10 Pulse Ox 97 07/14/24 08:10 O2 Del Method Room Air 07/14/24 05:37 FiO2 21 07/14/24 05:37 07/13/24 07/14/24 07/14/24 22:59 06:59 14:59 Intake Total 0 / 0 3200.000 / 3200.000 115.43 / 115.43 Output Total 2725 / 2725 Balance 0 / 0 475.000 / 475.000 115.43 / 115.43 Weight last 48 hrs Weight 181 lb 6.4 oz Weight 184 lb 6.4 oz Weight 180 lb Physical Exam 2 Narrative: GENERAL: The patient is alert and oriented times three. Not in any acute distress. Patient is known to have HEENT: No significant pallor, icterus or lymphadenopathy.Oral cavity: There are no mucous membrane lesions. NECK: Trachea appears to be central. No masses noted. No JVD or thyromegaly appreciated. RESPIRATORY: Chest is symmetrical. No intercostals muscle retraction or any accessory muscle activation. There is no chest wall tenderness. Breath sounds are heard bilaterally. No rales or rhonchi heard. No evidence of any consolidation. BREASTS: Deferred. HEART: The heart sounds are normal. No S3 or S4. Short systolic murmur at the base of the heart. No diastolic murmurs. No pericardial rub ABDOMEN: No vessel pulsations or distention. No tenderness. No organomegaly appreciated. Bowel sounds are normally heard. : Deferred. RECTAL: Deferred. LYMPHATIC: No lymphadenopathy noted in the neck. EXTREMITIES: Above-knee amputations bilaterally MUSCULOSKELETAL: No acute joint deformities or swelling SKIN: There are no significant rashes or ecchymosis NEUROPSYCHIATRIC: The patient is alert and oriented x3. Appears to be in a good mood. No tremors or rigidity noted. Urinary Catheter Management: Christiansen: Cath Placed During This Visit: yes Urinary Catheter Date of Insertion: 07/14/24 Urinary Catheter Time of Insertion: 08:19 Data 07/13/24 18:03 07/13/24 18:03 Other Labs: Laboratory Last Values WBC 7.00 10^3/uL (3.29-11.43) 07/13/24 18:03 RBC 4.22 10^6/uL (3.85-5.65) 07/13/24 18:03 Hgb 12.00 g/dL (11.27-16.99) 07/13/24 18:03 Hct 38.3 % (37-53) 07/13/24 18:03 MCV 90.8 fl (82-101) 07/13/24 18:03 MCH 28.4 pg (27-33) 07/13/24 18:03 MCHC 31.3 g/dL (30-55) 07/13/24 18:03 RDW 16.1 % (12.1-15.1) H 07/13/24 18:03 Plt Count 157 10^3/cmm (157-399) 07/13/24 18:03 MPV 9.9 fL (7.4-10.4) 07/13/24 18:03 Neut % (Auto) 53.7 % 07/13/24 18:03 Lymph % (Auto) 34.9 % 07/13/24 18:03 [place] % (Auto) 6.7 % 07/13/24 18:03 Eos % (Auto) 3.7 % 07/13/24 18:03 Baso % (Auto) 0.7 % 07/13/24 18:03 Neut # (Auto) 3.76 10^3/uL (1.8-7.7) 07/13/24 18:03 Lymph # (Auto) 2.4 10^3/uL (0.8-4.8) 07/13/24 18:03 [place] # (Auto) 0.5 10^3/uL (0.2-0.9) 07/13/24 18:03 Eos # (Auto) 0.3 10^3/uL (0.0-0.8) 07/13/24 18:03 Baso # (Auto) 0.1 10^3/uL (0.0-0.1) 07/13/24 18:03 Nucleated RBC % (auto) 0 % 07/13/24 18:03 Nucleated RBCs # 0.0 /100WBC 07/13/24 18:03 PT 13.00 SECONDS (12.1-14.9) 07/13/24 18:03 INR 0.96 (0.8-1.2) 07/13/24 18:03 Sodium 141 mmol/L (136-145) 07/13/24 18:03 Potassium 4.1 mmol/L (3.5-5.1) 07/13/24 18:03 Chloride 109 mmol/L (98-107) H 07/13/24 18:03 Carbon Dioxide 23 mmol/L (22-29) 07/13/24 18:03 Anion Gap 13.1 (5-19) 07/13/24 18:03 BUN 17 mg/dL (8-23) 07/13/24 18:03 Creatinine 0.6 mg/dL (0.7-1.2) L 07/13/24 18:03 GFR Calculation Not Reportable 07/13/24 18:03 Glucose 105 mg/dL (65-115) 07/13/24 18:03 Calculated Osmolality 294 mOsm/kg (285-295) 07/13/24 18:03 Calcium 9.0 mg/dL (8.5-10.5) 07/13/24 18:03 Total Bilirubin 0.3 mg/dL (0.15-1.2) 07/13/24 18:03 AST 13 U/L (0-40) 07/13/24 18:03 ALT 14 U/L (0-41) 07/13/24 18:03 Alkaline Phosphatase 89 U/L (40-130) 07/13/24 18:03 Troponin T Baseline 48 ng/L (0-15) H 07/13/24 18:03 Troponin T 120 Minute 42.70 ng/L (0-15) H 07/13/24 20:17 Delta Troponin T -5.30 ABS# (0-10) L 07/13/24 20:17 Troponin T Hi Sens 6Hr 44.73 ng/L (0-15) H 07/14/24 00:00 Troponin T Hi Sens 6Hr Delta -3.27 ng/L (0-12) L 07/14/24 00:00 NT-Pro-B Natriuret Pep 9887 pg/mL (0-450) H 07/14/24 00:00 Total Protein 6.0 g/dL (6.6-8.7) L 07/13/24 18:03 Albumin 3.5 g/dL (3.5-5.2) 07/13/24 18:03 Globulin 2.5 g/dL (1.3-4.6) 07/13/24 18:03 Urine Color Yellow (Yellow) 07/13/24 23:10 Urine Appearance Clear (CLEAR) 07/13/24 23:10 Urine pH 5.5 (5-7) 07/13/24 23:10 Ur Specific [place] 1.020 (1.005-1.030) 07/13/24 23:10 Urine Protein Negative (Negative) 07/13/24 23:10 Urine Glucose (UA) Negative (Normal) 07/13/24 23:10 Urine Ketones Negative (Negative) 07/13/24 23:10 Urine Blood Negative (Negative) 07/13/24 23:10 Urine Nitrate Negative (Negative) 07/13/24 23:10 Urine Bilirubin Negative (Negative) 07/13/24 23:10 Urine Urobilinogen 1.0 mg/dL (Negative) 07/13/24 23:10 Ur Leukocyte Esterase Negative (Negative) 07/13/24 23:10 Urine RBC 0-2 /hpf (0-2) 07/13/24 23:10 Urine WBC 0-5 /hpf (0-5) 07/13/24 23:10 Ur Squamous Epith Cells 0-5 /hpf (0-5) 07/13/24 23:10 Amorphous Sediment Not Reportable 07/13/24 23:10 Urine Bacteria None seen /hpf (NONE) 07/13/24 23:10 Hyaline Casts 0-4 /lpf H 07/13/24 23:10 Coronavirus (PCR) Negative (Negative) 07/13/24 18:36 Influenza A (PCR) Negative (Negative) 07/13/24 18:36 Influenza Type B (PCR) Negative (Negative) 07/13/24 18:36 RSV (PCR) Negative (Negative) 07/13/24 18:36 Micro: Microbiology 07/14/24 06:44 Blood Culture - Preliminary Blood SPECIMEN COLLECTED 07/14/24 06:37 Blood Culture - Preliminary Blood SPECIMEN COLLECTED A&P Assessment and plan (1) CHF (congestive heart failure): Seems to have some amount of decompensation. Currently the oxygen saturation seems to be appropriate. Was somewhat hypotensive but currently the blood pressure is in the normal range. May be continued on the current medications.. Consider doing a Myocardial perfusion imaging to further evaluate the coronary status. An echocardiogram would be helpful to evaluate LV function and rule out any other pathology. Qualifiers: Heart failure chronicity: unspecified Heart failure type: unspecified Qualified Code(s): I50.9 - Heart failure, unspecified (2) Peripheral arterial disease with history of revascularization: Patient apparently has a history of severe peripheral artery disease, ended up having a bony amputation bilaterally this year. The stump appears to have healed well. No specific symptoms at this point. (3) Bradycardia: Patient has no documented bradycardia on the telemetry or with the device interrogation. He has PVCs and that seems to be causing bradycardic rate with a pulse oximeter. His lead function appears to be appropriate. Good sensing and pacing function. (4) Presence of permanent cardiac pacemaker: Pacemaker since 2013. His ventricular pacing is 18%. (5) Hypotension: Status post Dobutrex, currently normotensive. Qualifiers: Hypotension type: other hypotension type Qualified Code(s): I95.89 - Other hypotension Plan Go ahead and do the echocardiogram as early as possible. Also consider doing a Myocardial perfusion imaging to evaluate for any underlying coronary ischemia causing heart failure and hypotension. After reviewing the results of the above, further recommendations will be made. I had discussions with the [employer] [facility] regarding his pacemaker. As of now there is no evidence of any lead function or pacemaker malfunction. We may continue on the current monitoring schedule. Thank you for the opportunity to evaluate this patient and make these recommendations Consult Attestations 2 Medical Necessity Statement: Deferred to the primary Coding Level of Care Code 60551 Diagnoses Congestive heart failure, unspecified HF chronicity, unspecified heart failure type I50.9 Heart failure chronicity: unspecified Heart failure type: unspecified Peripheral arterial disease with history of revascularization I73.9; Z98.890 Bradycardia R00.1 Presence of permanent cardiac pacemaker Z95.0 Other specified hypotension I95.89 Hypotension type: other hypotension type Documented by User: Winnie Rm NP 07/15/24 08:05 Providers/Reason For Consult 2 Reason for Consult*: bradycardia History of Present Illness History of Present Illness This is a very pleasant 74-year-old gentleman with a history of two-vessel CABG, status post TAVR, CAD status post stents, bilateral AKA, and history of pacemaker placement. He came into the ED yesterday for lethargy and low heart rate. Patient is here with his granddaughter. He is a poor historian. He came in to the emergency room with complaints of general malaise and lethargy that have been going on for several days. In the emergency room it was said that the patient had a heart rate as low as 38 although we do not have any strip or EKG confirming this. He stated his home health nurse came out to visit and he was found to have a HR at 36 and he was referred to the hospital. He was seen at [facility] and was notified his heart rate was ok. After this, he had another episode of low HR per patient family between 38 and 44 and EMS had him transported here via helicopter. Vital signs were stable otherwise. He did have multiple episodes of hypotension on admission and was given a total of 3 boluses. After that his blood pressure and heart rate improved. Patient's BNP was elevated to 11,000. EKG showed paced rhythm with a small amount of ST depression in V4 and V5. Troponin slightly elevated at 48-42.7-44.73 delta negative. Echo was ordered. CT of the chest was done that showed TAVR valve was in the appropriate position. It also showed bilateral pleural effusions. He was given 60 mg of Lasix which was thought to possibly have contributed to the hypotension. He was placed on dobutamine drip, and bp improved. He is off of this now. Patient tells me his main complaint has been lethargy. He denies any dizziness. He has had some nausea with dry heaving. He states that he does have a history of chronic chest pressure that occurs twice per week improved with nitro. He states this is at the center of his chest and more of a pressure. At this time he has no chest pain. He has a Biotronik pacemaker. This was interrogated at bedside. He is atrial paced 97% of the time. No episodes of bradycardia noted. Medications/Allergies Home Medications Medication Instructions Recorded Confirmed Last Taken Type albuterol 90 mcg/actuation aerosol 90 mcg inhalation Q6H PRN 07/13/24 07/13/24 Unknown History inhaler Shortness Of Breath Or Wheezing aspirin 81 mg tablet,delayed 81 mg PO DAILY 07/13/24 07/13/24 Unknown History release carvedilol 3.125 mg tablet 3.125 mg PO BID 07/13/24 07/13/24 Unknown History citalopram 20 mg tablet 20 mg PO DAILY 07/13/24 07/13/24 Unknown History clopidogrel 75 mg tablet 75 mg PO DAILY 07/13/24 07/13/24 Unknown History diphenhydramine 25 1 tab PO BEDTIME PRN Insomnia 07/13/24 07/13/24 Unknown History mg-acetaminophen 500 mg tablet (Tylenol PM Extra Strength) ezetimibe 10 mg tablet 10 mg PO BEDTIME 07/13/24 07/13/24 Unknown History famotidine 40 mg tablet 40 mg PO DAILY 07/13/24 07/13/24 Unknown History fenofibrate 160 mg tablet 160 mg PO BEDTIME 07/13/24 07/13/24 Unknown History ferrous sulfate 324 mg (65 mg 324 mg PO DAILY 07/13/24 07/13/24 Unknown History iron) tablet,delayed release furosemide 40 mg tablet 40 mg PO DAILY 07/13/24 07/13/24 Unknown History hydrocodone 10 mg-acetaminophen 2 tab PO Q6H PRN Pain 07/13/24 07/13/24 Unknown History 325 mg tablet menthol 0.44 %-zinc oxide 20.6 % 1 applic topical DAILY PRN skin 07/13/24 07/13/24 Unknown History topical ointment (Calmoseptine) irritation midodrine 5 mg tablet 5 mg PO TID 07/13/24 07/13/24 Unknown History nitroglycerin 0.4 mg sublingual 0.4 mg sublingual Q5MIN PRN Chest 07/13/24 07/13/24 Unknown History tablet (Nitrostat) Pain ondansetron 4 mg disintegrating 4 mg PO Q4H PRN Nausea And Vomiting 07/13/24 07/13/24 Unknown History tablet pantoprazole 40 mg tablet,delayed 40 mg PO DAILY 07/13/24 07/13/24 Unknown History release (Protonix) pentoxifylline 400 mg 400 mg PO TID 07/13/24 07/13/24 Unknown History tablet,extended release pregabalin 100 mg capsule 100 mg PO TID 07/13/24 07/13/24 Unknown History ranolazine 500 mg tablet,extended 500 mg PO BID 07/13/24 07/13/24 Unknown History release,12 hr rosuvastatin 40 mg tablet 40 mg PO BEDTIME 07/13/24 07/13/24 Unknown History tamsulosin 0.4 mg capsule 0.4 mg PO DAILY 07/13/24 07/13/24 Unknown History tiotropium bromide 2.5 2 puff inhalation DAILY 07/13/24 07/13/24 Unknown History mcg/actuation mist for inhalation Allergies Allergy/AdvReac Type Severity Reaction Status Date / Time ticagrelor Allergy Unknown unknown Verified 07/14/24 03:33 gemfibrozil Allergy Unknown Verified 07/14/24 03:33 Lorazepam Allergy Unknown unknown Uncoded 07/14/24 03:33 Sacubitril/Valsartan Allergy Unknown unknown Uncoded 07/14/24 03:33 PFSH Acute 2 PFSH: Medical History (Updated 07/14/24 @ 17:20 by Cal Foote MD) COPD (chronic obstructive pulmonary disease) Muscular dystrophy Surgical History (Updated 07/14/24 @ 05:41 by Vida Thomas MD) History of surgery on arm Hx of CABG Family History (Updated 07/14/24 @ 03:40 by Vida Thomas MD) Father Cancer Mother Heart disease Brother Lung cancer Social History (Updated 07/14/24 @ 03:38 by Vida Thomas MD) Smoking and tobacco/nicotine status: current every day tobacco/nicotine user Alcohol intake: former Year of sobriety/quit date alcohol: 2009 Substance/Drug Use: never Additional social history: started 1ppd at age 12 until 1992. Started again 1ppd in 2010 to current. Physical Exam 2 Urinary Catheter Management: Christiansen: Cath Placed During This Visit: yes Data 07/13/24 18:03 07/13/24 18:03 A&P Assessment and plan (1) CHF (congestive heart failure): Qualifiers: Heart failure chronicity: unspecified Heart failure type: unspecified Qualified Code(s): I50.9 - Heart failure, unspecified (2) Peripheral arterial disease with history of revascularization: (3) Bradycardia: (4) Presence of permanent cardiac pacemaker: (5) Hypotension: Qualifiers: Hypotension type: other hypotension type Qualified Code(s): I95.89 - Other hypotension Coding Level of Care Code 12852 Diagnoses Congestive heart failure, unspecified HF chronicity, unspecified heart failure type I50.9 Heart failure chronicity: unspecified Heart failure type: unspecified Peripheral arterial disease with history of revascularization I73.9; Z98.890 Bradycardia R00.1 Presence of permanent cardiac pacemaker Z95.0 Other specified hypotension I95.89 Hypotension type: other hypotension type
--- NOTE | 2024-07-14 09:22 | ECG_ITS ---
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 Measurements Intervals [place] Rate: 75 P: 70 FL: 294 QRS: 122 QRSD: 204 T: 129 QT: 503 QTc: 564 Interpretive Statements ELECTRONIC ATRIAL PACEMAKER ELECTRONIC VENTRICULAR PACEMAKER MARKED ST ELEVATION, CONSIDER ANTERIOR INJURY [MARKED ST ELEVATION W/O NORMALLY INFLECTED T-WAVE IN V2-V5] Compared to ECG 07/14/2024 04:02:38 ST (T wave) deviation now present Myocardial infarct finding now present Right bundle-branch block no longer present Left anterior fascicular block no longer present Electronically Signed On 07-14-2024 16:51:46 DISTRIBUTION FIELD TECHNICIAN by Paul Knutson M.D. [id number]
[2024-07-14 09:24] LABS: Lactic Sepsis W/Reflex 0.9 mmol/L (0.5-2.2)
[2024-07-14 09:26] LABS: Troponin(5th) Baseline 37 ng/L (0-15)
[2024-07-14 09:38] LABS: ABG PCO2 32.3 mmHg (35-45); ABG PH Result 7.41 (7.35-7.45); Arterial Blood Gas Hematocrit 35.5 % (42-52); Base Excess ABG -3.2 mmol/L (-2.0-2.0); Blood Gas Allen Test Pos; Blood Gas Operator Identificat CAK; Blood Gas Sample Site Radial, right; HCO3 ABG 20.6 mmol/L (22-26); Oxygen Device ROOM AIR; PO2 ABG 31.3 mmHg (80.0-100.0); PO2 FiO2 Ratio Arterial Blood 149
[2024-07-14 09:39] LABS: Blood Gas Sample Type VENOUS
--- NOTE | 2024-07-14 10:00 | XR_ITS ---
WS: [id number] Portable AP semiupright chest, 07/14/2024, 1052 hours Clinical Data: Post PICC insertion Comparison: Portable chest, 07/14/2024, 0805 hours Findings: Right PICC line enters the right subclavian vein and ends in the mid superior vena cava. XR/XR chest 1V portable [id number] Impression: Satisfactory insertion of right PICC line.
--- NOTE | 2024-07-14 11:00 | PICC.NOTE ---
Triple lumen PICC placed to right brachial vein. Referred to vascular access nurse for PICC placement due to poor access. Risks and benefits discussed and informed consent obtained from pt. Right arm assessed with right brachial vein measuring 4.2 mm, straight, and apparent best choice for placement. Using sterile technique and MST, right brachial vein accessed x 1 stick. Mid-arm circumference measured 10 cm from right AC 29 cm. Trimmed cath 47 cm with 0 cm external length noted. CXR shows tip in SVC, in good position for use per radiologist. Line secured with stat-lock. Insertion site covered with Secureport IV and TSM. Report given to bedside nurse, SHARIF Britton.
[2024-07-14 11:30] LABS: Troponin 5 2HR 39.09 ng/L (0-15); Troponin 5 2HR Delta 2.09 ABS# (0-10)
[2024-07-14] MEDS: FUROsemide 10 mg/mL SDV 4mL 40 MG IVP ×2 (11:47→20:38)
--- NOTE | 2024-07-14 12:27 | PC.SOCIAL ---
IMM Update Pg. 2 of IMM Updated. Initialed, dated, and timed copy in chart. Copy provided at bedside.
--- NOTE | 2024-07-14 13:13 | ECG_ITS ---
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 Measurements Intervals [place] Rate: 82 P: 73 OR: 234 QRS: -73 QRSD: 149 T: 71 QT: 462 QTc: 542 Interpretive Statements ELECTRONIC ATRIAL PACEMAKER RIGHT BUNDLE BRANCH BLOCK [120+ ms QRS DURATION, UPRIGHT V1, 40+ ms S IN I/aVL/V4/V5/V6] LEFT ANTERIOR FASCICULAR BLOCK [QRS AXIS <= -45, QR IN I, RS IN II] Compared to ECG 07/14/2024 09:26:43 Right bundle-branch block now present Left anterior fascicular block now present Ventricular-paced complex(es) or rhythm no longer present ST (T wave) deviation no longer present Myocardial infarct finding no longer present Electronically Signed On 07-14-2024 16:50:58 AUTOMOTIVE LOT ATTENDANT by Paul Knutson M.D. [id number]
--- NOTE | 2024-07-14 14:49 | P.PN_ITS ---
Subjective 2 Subjective: Patient was seen this morning, he was moved to the ICU due to hypotension, not responding to IV fluids, moved to ICU for persistent hypotension, shock, placed on dopamine, currently he is alert oriented x 3, following all commands, does report edema, shortness of breath, feeling lightheaded and dizzy. He tells me that he had his pacemaker placed at [facility], 15 years ago, he was having some sort of issue with the pacemaker about 5 years ago he tells me that the customer operations representative sort of the pacemaker came to the ER in [facility] about 5 years ago and they told him that there was an issue with a negative lead for his pacemaker, but currently was not an issue but in the future it would need to be intervened on. He reports that at home, he has been feeling weak and fatigued, had to have episodes of dizziness, his home health care nurse checked his pulse and his heart rates were in the low 30s he was not feeling well. Denies any bloody or black stools, denies any hemoptysis, denies any fevers, no chills, no cough, recently he was hospitalized for a below-knee amputation [facility], denies any issues with his heart rate at that time Vitals/I&O/Wt Last Vital Signs Temp 97.7 F 07/14/24 04:00 Pulse 78 07/14/24 13:15 Resp 15 07/14/24 10:25 BP 103/65 07/14/24 13:15 Pulse Ox 96 07/14/24 13:15 O2 Del Method Room Air 07/14/24 05:37 FiO2 21 07/14/24 05:37 07/13/24 07/14/24 07/14/24 22:59 06:59 14:59 Intake Total 0 / 0 3200.000 / 3200.000 355.43 / 355.43 Output Total 2725 / 2725 Balance 0 / 0 475.000 / 475.000 355.43 / 355.43 Weight last 48 hrs Weight 82.282 kg Weight 83.642 kg Weight 81.647 kg Physical Exam 2 Const: COMMON NORMALS: no acute distress and patient oriented x3 Resp: COMMON NORMALS: normal respiratory effort, No retractions, No use of accessory muscles and clear to auscultation bilaterally AUSCULTATION: clear to auscultation bilaterally Cardio: COMMON NORMALS: regular rate, regular rhythm, S1 normal heart sound present and S2 normal heart sound present RATE: regular rate RHYTHM: r egular rhythm HEART SOUNDS: S1 normal heart sound present and S2 normal heart sound present GI: COMMON NORMALS: Normal to inspection, nondistended, normoactive bowel sounds present and non-tender Extremity: COMMON NORMALS: no pedal edema Neuro: COMMON NORMALS: patient oriented x3 Psych: COMMON NORMALS: mental status grossly normal Urinary Catheter Management: Christiansen: Cath Placed During This Visit: yes Urinary Catheter Date of Insertion: 07/14/24 Urinary Catheter Time of Insertion: 08:19 Data 07/13/24 18:03 07/13/24 18:03 Micro: Microbiology 07/14/24 06:44 Blood Culture - Preliminary Blood SPECIMEN COLLECTED 07/14/24 06:37 Blood Culture - Preliminary Blood SPECIMEN COLLECTED A&P Assessment and plan (1) Hypotension: (2) Bradycardia: (3) Pleural effusion: (4) Systolic CHF, acute: (5) Bilateral pleural effusion: (6) Shock: Plan Benjamin Robles is a 74 year old male w/ 2v CABG, TAVR s/p valve replacement, CAD s/p stents, b/l AKA in 07/2023 at [place], [place], due who presents to [facility] on 07/13/2024 for low Heart rate. # Shock -Status post 3.5 L fluid bolus - Is on midodrine as outpatient, increase midodrine to 10 every 6 hours - Lactic acid within normal limits -Continue dopamine drip #Bradycardia -interrogate pacemaker -Cardiology consulted ? On dopamine drip # NSTEMI CAD s/p stents, with history of CABG: Patient states 4-5 stents -Continue aspirin, Plavix -Coreg on hold #HLD # Systolic and diastolic CHF exacerbation - Hold all anti-hypertensives. -Strict I's and O's. -Lasix 40 IV twice daily # Bilateral pleural effusions #Peripheral Vascular Disease # TAVR #B/l Pleural effusions -Will consider thoracentesis based on clinical progress #Chronic back pain despite #Hx of L-spine Surgery - Dilaudid ordered #R. Carotid Bruit - b/l Carotid endarterectomy: Patient tells me that he had a bilateral carotid endarterectomy #Muscular dystrophy. DVT ppx: Lovenox Plan for today patient moved to the ICU, spoke to cardiology, Dr. Foote, cardiology has been consulted to interrogate pacemaker, on dopamine drip will wean as tolerated, monitor bradycardia IV diuresis with Lasix, monitor urine output monitor creatinine, repeat lactic acid, ABG, troponin series, as patient is on dopamine PICC line ordered Attestations 2 Medical Necessity Statement*: Patient requires hospitalization for shock, bradycardia, bilateral pleural effusions, systolic or diastolic CHF Coding Level of Care Code Critical Care >/= 30 minutes Critical care time (in minutes): 35 The high probability of a clinically significant, sudden or life threatening deterioration, as referenced in this documentation, required my full and direct attention, intervention and personal management. The critical care time shown is in addition to time spent performing any reported separately billable procedures and includes the following: [x] Data and vital sign review and interpretation [x ] Patient assessment, examination and intervention [x] Medication orders and management [x] Patient/Family updates as able [x] Care Coordination and Documentation. Diagnoses Hypotension I95.9 Bradycardia R00.1 Pleural effusion J90 Systolic CHF, acute I50.21 Bilateral pleural effusion J90 Shock R57.9
[2024-07-14 14:55] LABS: Troponin 5 6HR 39.32 ng/L (0-15); Troponin 5 6HR Delta 2.32 ng/L (0-12)
[2024-07-14] MEDS: enoxaparin 40 mg/0.4 mL Syringe SUBCUT (15:13)
[2024-07-14] MEDS: clotrimazole 1% cream 30 gm 1 APPLIC TOPICAL (17:39)
--- NOTE | 2024-07-14 22:33 | ECG_ITS ---
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 Measurements Intervals [place] Rate: 83 P: 106 PA: 180 QRS: -67 QRSD: 149 T: 70 QT: 438 QTc: 517 Interpretive Statements ELECTRONIC ATRIAL PACEMAKER RIGHT BUNDLE BRANCH BLOCK [120+ ms QRS DURATION, UPRIGHT V1, 40+ ms S IN I/aVL/V4/V5/V6] LEFT ANTERIOR FASCICULAR BLOCK [QRS AXIS <= -45, QR IN I, RS IN II] Compared to ECG 07/14/2024 13:13:35 No significant changes Electronically Signed On 07-15-2024 17:48:22 CORPORATE SALES REPRESENTATIVE by Cal Foote M.D. [id number]
--- NOTE | 2024-07-14 23:05 | PC.NURSE ---
Dopamine started early in shift due to hypotension. Patient immediately began complaining of nausea, Zofran given, was ineffective. Spoke with Dr Lopes and made aware that medication had been restarted for blood pressure support, but patient was extremely nauseated with it. Order received to pause Dopamine and do EKG. EKG was unchanged from admission, MAP decreased to 59 within 20 min of stopping Dopamine. Reported same to Dr. Lopes, new order recieved for Levophed.
[2024-07-14] MEDS: sennosides 8.6 mg Tablet 17.2 MG PO (23:25)
[2024-07-14] MEDS: atorvastatin 40 mg Tablet 80 MG PO (23:25)
[2024-07-14] MEDS: norepinephrine 4 MG/250 ML BAG 7.5 MG IV (23:26)
[2024-07-15] VITALS (126 sets, daily range): BP systolic 72–135; BP diastolic 48–79; PULSE 75–101; RESP 0–27; TEMP 36–37.1; O2SAT 93–100
[2024-07-15] MEDS: pantoprazole 40 mg SDV IVP (04:08)
[2024-07-15 04:09] LABS: Basophils # 0.1 10^3/uL (0.0-0.1); Basophils % 0.7 %; Eosinophils # 0.4 10^3/uL (0.0-0.8); Eosinophils % 3.7 %; Hematocrit 34.4 % (37-53); Lymphocytes # 2.2 10^3/uL (0.8-4.8); Lymphocytes % 21.6 %; Mean Corpuscular HGB Conc 31.7 g/dL (30-55); Mean Corpuscular Hemoglobin 28.8 pg (27-33); Mean Corpuscular Volume 90.8 fl (82-101); Mean Platelet Volume 9.4 fL (7.4-10.4); Monocytes # 0.8 10^3/uL (0.2-0.9); Monocytes % 7.8 %; Neutrophils # 6.69 10^3/uL (1.8-7.7); Neutrophils % 65.8 %; Nucleated Red Blood Cells % 0 %; Platelet Count 175 10^3/cmm (157-399); Red Blood Count 3.79 10^6/uL (3.85-5.65); White Blood Count 10.17 10^3/uL (3.29-11.43)
[2024-07-15 04:20] LABS: INR 1.06 (0.8-1.2)
[2024-07-15 04:21] LABS: Partial Thromboplastin Time 36.7 SECONDS (23.9-36.7)
[2024-07-15 04:41] LABS: Alanine Aminotransferase 13 U/L (0-41); Albumin Level 3.2 g/dL (3.5-5.2); Alkaline Phosphatase 85 U/L (40-130); Blood Urea Nitrogen 14 mg/dL (8-23); Calcium 8.6 mg/dL (8.5-10.5); Carbon Dioxide 26 mmol/L (22-29); Chloride 105 mmol/L (98-107); Creatinine Clr Calc Pharmacy 91.4244; Globulin 2.3 g/dL (1.3-4.6); Glucose 121 mg/dL (65-115); Magnesium 1.8 mg/dL (1.7-2.3); Osmolality Calculated 294 mOsm/kg (285-295); Phosphorus 4.2 mg/dL (2.5-4.5); Sodium 141 mmol/L (136-145); Total Bilirubin 0.3 mg/dL (0.15-1.2); Total Protein 5.5 g/dL (6.6-8.7)
[2024-07-15 04:43] LABS: Anion Gap 13.6 (5-19); Aspartate Amino Transferase 17 U/L (0-40); Potassium 3.6 mmol/L (3.5-5.1)
[2024-07-15] MEDS: HYDROmorphone 1 mg/mL INJ 1 mL IVP (05:45)
--- NOTE | 2024-07-15 06:45 | PC.NURSE ---
Dopamine gtt stopped before 07/14 per shift report due to pt's severe nausea and vomiting after it was restarted. Dopamine completed off in SEP.
[2024-07-15] MEDS: midodrine 5 mg TABLET 10 MG PO ×3 (08:14→23:30)
[2024-07-15] MEDS: aspirin 81 mg EC Tablet PO (08:14)
[2024-07-15] MEDS: clopidogrel 75 mg Tablet PO (08:14)
[2024-07-15] MEDS: docusate sodium 100 mg Capsule 200 MG PO (08:15)
[2024-07-15] MEDS: FUROsemide 10 mg/mL SDV 4mL 40 MG IVP ×2 (08:45→21:56)
[2024-07-15] MEDS: clotrimazole 1% cream 30 gm 1 APPLIC TOPICAL (08:46)
[2024-07-15] MEDS: HYDROcodone-acetaminophen 10-325 mg Tablet 1 TAB PO ×6 (09:21→21:57)
--- NOTE | 2024-07-15 10:58 | P.PN_ITS ---
<Statement entered by Paul Knutson M.D - 07/16/24 08:59> Patient was evaluated and cared for in conjunction with an advanced practice practitioner.? I personally examined the patient and reviewed the chart and all pertinent data including imaging, telemetry, and laboratory results.? I discussed the patient in detail with the advanced practice practitioner.? Please see? their note for complete progress note, testing result and agreed upon plan of care for the patient. Patient denies chest pain. has some shortness of breath. GENERAL: Patient is alert, awake and oriented x3. HEART: Regular S1 and S2 LUNGS: Clear to auscultate bilaterally CENTRAL NERVOUS SYSTEM: Grossly nonfocal. EXTREMITIES: Lower extremities with out edema bilaterally. (1) CHF (congestive heart failure): (2) Peripheral arterial disease with history of revascularization: (3) Bradycardia: (4) Presence of permanent cardiac pacemaker: (5) Hypotension: Pacemaker functioning appropriately. Bradycardia noted before likely associated with PVCs. Patient has on and off chest pressure. His EF is 32% which is a drop from the prior records we obtained when it was 45%. Patient given option of stress testing versus coronary angiogram. He does not want to proceed with stress test and wants coronary angiogram. Currently requiring levophed. Will plan on coronary angiogram in 1-2 days. Thank you for involving us with care of this patient. We will continue to follow. Please call with questions. Subjective 2 Subjective: Patient's blood pressure has been soft. He has been placed back on a small amount of Levophed so that he can be diuresed. Creatinine is stable. He denies any chest pain or significant shortness of breath at this time. Vital signs are stable. O2 sat 97% on room air. Medications: Reviewed: Yes Vitals/I&O/Wt Last Vital Signs Temp 98.7 F 07/15/24 07:45 Pulse 83 07/15/24 10:15 Resp 15 07/15/24 10:15 BP 97/60 07/15/24 10:15 Pulse Ox 97 07/15/24 10:15 O2 Del Method Room Air 07/15/24 10:15 FiO2 21 07/14/24 05:37 07/14/24 07/15/24 07/15/24 22:59 06:59 14:59 Intake Total 370.542 / 725.972 187.911 / 913.883 334.187 / 334.187 Output Total 1999 1550 / 3550 Balance -1629.458 / -1274.028 -1362.089 / -2636.117 334.187 / 334.187 Weight last 48 hrs Weight 172 lb 9.6 oz Weight 181 lb 6.4 oz Weight 184 lb 6.4 oz Weight 180 lb Physical Exam 2 Narrative: General: No apparent distress, healthy appearing, well nourished Muskuloskeletal: bilateral lower leg AKA, weak upper and lower extremities (patient has a hx of muscular issues) Respiratory: Normal respiratory effort, clear to auscultation bilaterally throughout all lung shaw, no use of accessory muscles Cardio: No JVD, regular rate, regular rhythm, S1 S2 normal, no murmurs, peripheral pulses 2+ throughout GI: Normal to inspection, nondistended Extremities: Full ROM, normal, normal capillary refill, no cyanosis, edema to bilateral thighs Neuro: Alert and oriented x4, no focal motor deficits Psych: Affect normal, denies suicidal ideation, mental status grossly normal Skin: No rashes or lesions noted, no wounds Urinary Catheter Management: Christiansen: Cath Placed During This Visit: yes Reason for Continuing Indwelling Catheter: Accurate Measurement of Urinary Output in Critically Ill Patients Urinary Catheter Date of Insertion: 07/14/24 Urinary Catheter Time of Insertion: 08:19 Data 07/15/24 03:45 07/15/24 03:45 Micro: Microbiology 07/14/24 06:44 Blood Culture - Preliminary Blood NEGATIVE TO DATE 07/14/24 06:37 Blood Culture - Preliminary Blood NEGATIVE TO DATE A&P Assessment and plan (1) CHF (congestive heart failure): Qualifiers: Heart failure chronicity: unspecified Heart failure type: unspecified Qualified Code(s): I50.9 - Heart failure, unspecified (2) Peripheral arterial disease with history of revascularization: (3) Bradycardia: (4) Presence of permanent cardiac pacemaker: (5) Hypotension: Qualifiers: Hypotension type: other hypotension type Qualified Code(s): I95.89 - Other hypotension Plan At this time patient has had an echo that showed an EF of 32%. Diffuse hypokinesia of the left ventricle with an ejection fraction of 32%. Mild to moderate aortic valve regurgitation. He was found to have an EF of 45% in 2013 so this is a significant decrease. The patient is unaware of his last echo. He has a history of CABG in 2009 and previous stents placed a couple years ago by Dr. Moore in [place]. His pacemaker seems to be functioning appropriately. He has had no episodes of bradycardia. I discussed this case with the patient and his family members. I discussed the options of a stress test versus an angiogram. The patient would rather go straight to the angiogram. At this time he still is fluid overloaded with bilateral pleural effusions and edema. The plan is to continue to diurese today and tomorrow possible cardiac cath . We will need to start goal-directed medical therapy at some point but due to the patient's hypotension we will avoid at this time. Will initiate life vest. Attestations 2 Medical Necessity Statement*: Deferred to primary. Coding Level of Care Code Acute Code for g Fwd Diagnoses Congestive heart failure, unspecified HF chronicity, unspecified heart failure type I50.9 Heart failure chronicity: unspecified Heart failure type: unspecified Peripheral arterial disease with history of revascularization I73.9; Z98.890 Bradycardia R00.1 Presence of permanent cardiac pacemaker Z95.0 Other specified hypotension I95.89 Hypotension type: other hypotension type
[2024-07-15] MEDS: enoxaparin 40 mg/0.4 mL Syringe SUBCUT (15:11)
[2024-07-15] MEDS: citalopram 20 mg Tablet PO (16:19)
--- NOTE | 2024-07-15 17:05 | P.PN_ITS ---
Subjective 2 Subjective: Patient was seen this morning, he tells me that he feels short of breath when lying down, no fevers, no chills, no nausea, no vomiting, did require Levophed during the night due to hypotension, on Levophed this morning Vitals/I&O/Wt Last Vital Signs Temp 97.8 F 07/15/24 13:01 Pulse 83 07/15/24 16:00 Resp 19 H 07/15/24 16:00 BP 77/53 07/15/24 16:00 Pulse Ox 93 07/15/24 16:00 O2 Del Method Room Air 07/15/24 13:30 FiO2 21 07/14/24 05:37 07/15/24 07/15/24 07/15/24 06:59 14:59 22:59 Intake Total 187.911 / 913.883 734.187 / 734.187 Output Total 1550 / 3550 Balance -1362.089 / -2636.117 734.187 / 734.187 Weight last 48 hrs Weight 78.29 kg Weight 82.282 kg Weight 83.642 kg Weight 81.647 kg Physical Exam 2 Const: COMMON NORMALS: no acute distress and patient oriented x3 Resp: COMMON NORMALS: normal respiratory effort, No retractions, No use of accessory muscles and clear to auscultation bilaterally AUSCULTATION: clear to auscultation bilaterally Cardio: COMMON NORMALS: regular rate, regular rhythm, S1 normal heart sound present and S2 normal heart sound present RATE: regular rate RHYTHM: r egular rhythm HEART SOUNDS: S1 normal heart sound present and S2 normal heart sound present GI: COMMON NORMALS: Normal to inspection, nondistended, normoactive bowel sounds present and non-tender Extremity: COMMON NORMALS: no pedal edema Neuro: COMMON NORMALS: patient oriented x3 Psych: COMMON NORMALS: mental status grossly normal Urinary Catheter Management: Christiansen: Cath Placed During This Visit: yes Reason for Continuing Indwelling Catheter: Accurate Measurement of Urinary Output in Critically Ill Patients Urinary Catheter Date of Insertion: 07/14/24 Urinary Catheter Time of Insertion: 08:19 Data 07/15/24 03:45 07/15/24 03:45 Micro: Microbiology 07/14/24 06:44 Blood Culture - Preliminary Blood NEGATIVE TO DATE 07/14/24 06:37 Blood Culture - Preliminary Blood NEGATIVE TO DATE A&P Assessment and plan (1) Hypotension: Qualifiers: Hypotension type: other hypotension type Qualified Code(s): I95.89 - Other hypotension (2) Bradycardia: (3) Pleural effusion: (4) Systolic CHF, acute: (5) Bilateral pleural effusion: (6) Shock: Plan Benjamin Robles is a 74 year old male w/ 2v CABG, TAVR s/p valve replacement, CAD s/p stents, b/l AKA in 07/2023 at [place], [place], due who presents to [facility] on 07/13/2024 for low Heart rate. # Shock, cardiogenic -EF down to 32% -Status post 3.5 L fluid bolus - Is on midodrine as outpatient, increase midodrine to 10 every 6 hours - Lactic acid within normal limits -Continue Levophed #Bradycardia -interrogate pacemaker, no acute findings -Cardiology consulted # NSTEMI CAD s/p stents, with history of CABG: Patient states 4-5 stents -Continue aspirin, Plavix -Coreg on hold #HLD # Systolic and diastolic CHF exacerbation - Hold all anti-hypertensives. -Strict I's and O's. -Bilateral pleural effusions --3 L -Lasix 40 IV twice daily # Bilateral pleural effusions #Peripheral Vascular Disease # TAVR #B/l Pleural effusions -Will consider thoracentesis based on clinical progress #Chronic back pain despite #Hx of L-spine Surgery - Dilaudid ordered #R. Carotid Bruit - b/l Carotid endarterectomy: Patient tells me that he had a bilateral carotid endarterectomy #Muscular dystrophy. DVT ppx: Lovenox Plan for today IV diuresis, Levophed, PICC line in place Attestations 2 Medical Necessity Statement*: Patient requires hospitalization for shock, cardiogenic, NSTEMI, systolic diastolic CHF Diagnoses Other specified hypotension I95.89 Hypotension type: other hypotension type Bradycardia R00.1 Pleural effusion J90 Systolic CHF, acute I50.21 Bilateral pleural effusion J90 Shock R57.9
[2024-07-15] MEDS: atorvastatin 40 mg Tablet 80 MG PO (21:56)
[2024-07-15] MEDS: sennosides 8.6 mg Tablet 17.2 MG PO (21:56)
[2024-07-16] VITALS (57 sets, daily range): BP systolic 71–164; BP diastolic 36–88; PULSE 82–95; RESP 5–29; TEMP 36.1–37.1; O2SAT 91–100; BMI 43.7
[2024-07-16 03:54] LABS: Basophils # 0.1 10^3/uL (0.0-0.1); Eosinophils # 0.6 10^3/uL (0.0-0.8); Eosinophils % 8.9 %; Hematocrit 35.6 % (37-53); Lymphocytes # 2.3 10^3/uL (0.8-4.8); Lymphocytes % 31.8 %; Mean Corpuscular Hemoglobin 28.8 pg (27-33); Mean Corpuscular Volume 89.9 fl (82-101); Mean Platelet Volume 9.5 fL (7.4-10.4); Monocytes # 0.6 10^3/uL (0.2-0.9); Monocytes % 8.9 %; Neutrophils # 3.53 10^3/uL (1.8-7.7); Neutrophils % 49.1 %; Nucleated Red Blood Cells % 0 %; Platelet Count 221 10^3/cmm (157-399); Red Blood Count 3.96 10^6/uL (3.85-5.65); Red Cell Distribution Width 15.9 % (12.1-15.1); White Blood Count 7.19 10^3/uL (3.29-11.43)
[2024-07-16 04:17] LABS: Alanine Aminotransferase 9 U/L (0-41); Albumin Level 3.4 g/dL (3.5-5.2); Alkaline Phosphatase 89 U/L (40-130); Blood Urea Nitrogen 14 mg/dL (8-23); Calcium 8.6 mg/dL (8.5-10.5); Carbon Dioxide 27 mmol/L (22-29); Chloride 102 mmol/L (98-107); Creatinine Clr Calc Pharmacy 86.9889; Globulin 2.4 g/dL (1.3-4.6); Glucose 144 mg/dL (65-115); Magnesium 1.8 mg/dL (1.7-2.3); Osmolality Calculated 295 mOsm/kg (285-295); Sodium 141 mmol/L (136-145); Total Bilirubin 0.4 mg/dL (0.15-1.2); Total Protein 5.8 g/dL (6.6-8.7)
[2024-07-16 04:18] LABS: Anion Gap 15.7 (5-19); Aspartate Amino Transferase 23 U/L (0-40); Potassium 3.7 mmol/L (3.5-5.1)
[2024-07-16 04:39] LABS: C Reactive Protein 22.3 mg/L (0.0-4.9); NT Pro B Type Natriuretic Pept 15711 pg/mL (0-450)
[2024-07-16] MEDS: pantoprazole 40 mg SDV IVP (05:29)
[2024-07-16] MEDS: midodrine 5 mg TABLET 10 MG PO ×3 (06:26→22:30)
[2024-07-16] MEDS: HYDROcodone-acetaminophen 10-325 mg Tablet 1 TAB PO ×7 (06:29→22:31)
[2024-07-16] MEDS: clopidogrel 75 mg Tablet PO (08:42)
[2024-07-16] MEDS: aspirin 81 mg EC Tablet PO (08:42)
[2024-07-16] MEDS: citalopram 20 mg Tablet PO (08:43)
[2024-07-16] MEDS: FUROsemide 10 mg/mL SDV 4mL 40 MG IVP ×2 (08:45→20:28)
[2024-07-16] MEDS: clotrimazole 1% cream 30 gm 1 APPLIC TOPICAL ×2 (08:45→18:02)
--- NOTE | 2024-07-16 10:52 | PC.SOCIAL ---
IMM Update pg 2 of IMM Updated and reviewed w/ patient and his . Copy provided and copy dated, initialed and placed in chart.
[2024-07-16] MEDS: norepinephrine 4 MG/250 ML BAG 7.5 MG IV (11:40)
--- NOTE | 2024-07-16 12:04 | P.PN_ITS ---
Subjective 2 Subjective: Patient denies chest pain. Still on levophed. Vitals/I&O/Wt Last Vital Signs Temp 97.0 F L 07/16/24 04:00 Pulse 88 07/16/24 06:00 Resp 10 L 07/16/24 06:00 BP 100/72 07/16/24 06:00 Pulse Ox 96 07/16/24 06:00 O2 Del Method Room Air 07/16/24 06:00 FiO2 21 07/14/24 05:37 07/15/24 07/16/24 07/16/24 22:59 06:59 14:59 Intake Total 152.562 / 886.749 58.750 / 945.499 30.376 / 30.376 Output Total 1050 / 1050 1350 / 2400 Balance -897.438 / -163.251 -1291.250 / -1454.501 30.376 / 30.376 Weight last 48 hrs Weight 174 lb 13.225 oz Weight 172 lb 9.6 oz Physical Exam 2 Narrative: GENERAL: Patient is alert NECK: No jugular vein distension. [] HEENT: No cyanosis. No icterus. No pallor. [] HEART: Regular S1 and S2. No murmur, rub or gallop. [] LUNGS: Diminished air entry bilaterally CENTRAL NERVOUS SYSTEM: Grossly nonfocal. [] EXTREMITIES: Lower extremities with 1+ edema bilaterally. Urinary Catheter Management: Christiansen: Cath Placed During This Visit: yes Reason for Continuing Indwelling Catheter: Accurate Measurement of Urinary Output in Critically Ill Patients Urinary Catheter Date of Insertion: 07/14/24 Urinary Catheter Time of Insertion: 08:19 Data 07/17/24 04:52 07/17/24 04:52 Micro: Microbiology 07/14/24 06:44 Blood Culture - Preliminary Blood NEGATIVE TO DATE 07/14/24 06:37 Blood Culture - Preliminary Blood NEGATIVE TO DATE A&P Assessment and plan (1) CHF (congestive heart failure): Qualifiers: Heart failure chronicity: unspecified Heart failure type: unspecified Qualified Code(s): I50.9 - Heart failure, unspecified (2) Peripheral arterial disease with history of revascularization: (3) Bradycardia: (4) Presence of permanent cardiac pacemaker: (5) Hypotension: Qualifiers: Hypotension type: other hypotension type Qualified Code(s): I95.89 - Other hypotension Plan Patient has significant dysfunction. This is a drop from before. Patient given options of stress test versus coronary angiogram. Patient abnormal proceed with coronary angiography. He had prior CABG and PCI's. Continue IV diuresis. He is still requiring Levophed. Likely cardiac catheterization tomorrow clinical progress. Close I&O's. Monitor renal function. Thank you for involving us in the care of this patient. Will continue to follow. Please call with questions. Attestations 2 Medical Necessity Statement*: Care expected to cross 2 midnights. Coding Level of Care Code Acute Code for [facility] Fwd Diagnoses Congestive heart failure, unspecified HF chronicity, unspecified heart failure type I50.9 Heart failure chronicity: unspecified Heart failure type: unspecified Peripheral arterial disease with history of revascularization I73.9; Z98.890 Bradycardia R00.1 Presence of permanent cardiac pacemaker Z95.0 Other specified hypotension I95.89 Hypotension type: other hypotension type
--- NOTE | 2024-07-16 14:58 | P.PN_ITS ---
Subjective 2 Subjective: patient was seen this morning, does report edema, no chest pain, no nausea or vomiting, is on levophed at 2 Vitals/I&O/Wt Last Vital Signs Temp 97.0 F L 07/16/24 04:00 Pulse 87 07/16/24 14:00 Resp 10 L 07/16/24 06:00 BP 100/72 07/16/24 06:00 Pulse Ox 96 07/16/24 06:00 O2 Del Method Room Air 07/16/24 06:00 FiO2 21 07/14/24 05:37 07/15/24 07/16/24 07/16/24 22:59 06:59 14:59 Intake Total 152.562 / 886.749 58.750 / 945.499 30.376 / 30.376 Output Total 1050 / 1050 1350 / 2400 Balance -897.438 / -163.251 -1291.250 / -1454.501 30.376 / 30.376 Weight last 48 hrs Weight 79.3 kg Weight 78.29 kg Physical Exam 2 Const: COMMON NORMALS: no acute distress and patient oriented x3 Resp: COMMON NORMALS: normal respiratory effort, No retractions, No use of accessory muscles and clear to auscultation bilaterally AUSCULTATION: clear to auscultation bilaterally Cardio: COMMON NORMALS: regular rate, regular rhythm, S1 normal heart sound present and S2 normal heart sound present RATE: regular rate RHYTHM: r egular rhythm HEART SOUNDS: S1 normal heart sound present and S2 normal heart sound present GI: COMMON NORMALS: Normal to inspection, nondistended, normoactive bowel sounds present and non-tender Extremity: NARRATIVE EXTREMITY EXAM: 1+ edema Neuro: COMMON NORMALS: patient oriented x3 Psych: COMMON NORMALS: mental status grossly normal Urinary Catheter Management: Christiansen: Cath Placed During This Visit: yes Reason for Continuing Indwelling Catheter: Accurate Measurement of Urinary Output in Critically Ill Patients Urinary Catheter Date of Insertion: 07/14/24 Urinary Catheter Time of Insertion: 08:19 Data 07/16/24 03:42 07/16/24 03:42 A&P Assessment and plan (1) Hypotension: Qualifiers: Hypotension type: other hypotension type Qualified Code(s): I95.89 - Other hypotension (2) Bradycardia: (3) Pleural effusion: (4) Systolic CHF, acute: (5) Bilateral pleural effusion: (6) Shock: Plan Benjamin Robles is a 74 year old male w/ 2v CABG, TAVR s/p valve replacement, CAD s/p stents, b/l AKA in 07/2023 at [place], [place], due who presents to [facility] on 07/13/2024 for low Heart rate. # Shock, cardiogenic -EF down to 32% -Status post 3.5 L fluid bolus - Is on midodrine as outpatient, increase midodrine to 10 every 6 hours - Lactic acid within normal limits -Continue Levophed #Bradycardia -interrogate pacemaker, no acute findings -Cardiology consulted # NSTEMI CAD s/p stents, with history of CABG: Patient states 4-5 stents -Continue aspirin, Plavix -Coreg on hold #HLD # Systolic and diastolic CHF exacerbation - Hold all anti-hypertensives. -Strict I's and O's. -Bilateral pleural effusions --3 L -Lasix 40 IV twice daily # Bilateral pleural effusions #Peripheral Vascular Disease # TAVR #B/l Pleural effusions -Will consider thoracentesis based on clinical progress #Chronic back pain despite #Hx of L-spine Surgery - Dilaudid ordered #R. Carotid Bruit - b/l Carotid endarterectomy: Patient tells me that he had a bilateral carotid endarterectomy #Muscular dystrophy. DVT ppx: Lovenox Plan for today IV diuresis, Levophed, PICC line in place, cath tommorow Attestations 2 Medical Necessity Statement*: patient requires hospitalization for chf, hypotension Diagnoses Other specified hypotension I95.89 Hypotension type: other hypotension type Bradycardia R00.1 Pleural effusion J90 Systolic CHF, acute I50.21 Bilateral pleural effusion J90 Shock R57.9
[2024-07-16] MEDS: enoxaparin 40 mg/0.4 mL Syringe SUBCUT (16:15)
[2024-07-16 16:46] LABS: Anion Gap 13.5 (5-19); Blood Urea Nitrogen 15 mg/dL (8-23); Calcium 8.8 mg/dL (8.5-10.5); Carbon Dioxide 28 mmol/L (22-29); Chloride 105 mmol/L (98-107); Creatinine Clr Calc Pharmacy 88.1111; Glucose 96 mg/dL (65-115); Osmolality Calculated 297 mOsm/kg (285-295); Potassium 3.5 mmol/L (3.5-5.1); Sodium 143 mmol/L (136-145)
--- NOTE | 2024-07-16 19:30 | PC.NURSE ---
Shift summary: Pt rested in bed throughout the shift. He allowed and requested frequent repositioning. He sufferes from chronic back pain. He requested his PRN Hydrocodone every time it was available. Paced rhythm noted on monitor, rate 80-90's. 3 or 4 PVCs noted this shift. Life vest applied at end of shift. Levophed remains infusing at 2 mcg/min, unable to wean off this shift. Pt just picked at his meals and drinks today. He complained frequently about the live vest after it was applied. He had 725 ml of urine output. NO Bm today. Pt refused to take Docusate Colace because he didn't want to shit the bed. and duaghter attentive to pt. Assisted his with shaving his face today.
[2024-07-16] MEDS: sennosides 8.6 mg Tablet 17.2 MG PO (20:28)
[2024-07-16] MEDS: atorvastatin 40 mg Tablet 80 MG PO (20:28)
[2024-07-17] VITALS (73 sets, daily range): BP systolic 85–148; BP diastolic 44–83; PULSE 72–99; RESP 4–27; TEMP 36.2–37; O2SAT 89–98; BMI 44.0
[2024-07-17] MEDS: pantoprazole 40 mg SDV IVP (04:32)
[2024-07-17 05:05] LABS: Basophils # 0.1 10^3/uL (0.0-0.1); Basophils % 0.9 %; Eosinophils # 0.6 10^3/uL (0.0-0.8); Hematocrit 35.6 % (37-53); Lymphocytes # 2.1 10^3/uL (0.8-4.8); Lymphocytes % 33.6 %; Mean Corpuscular Hemoglobin 28.5 pg (27-33); Mean Platelet Volume 9.3 fL (7.4-10.4); Monocytes # 0.6 10^3/uL (0.2-0.9); Monocytes % 9.6 %; Neutrophils # 2.95 10^3/uL (1.8-7.7); Neutrophils % 46.6 %; Nucleated Red Blood Cells % 0 %; Platelet Count 175 10^3/cmm (157-399); Red Cell Distribution Width 15.8 % (12.1-15.1); White Blood Count 6.34 10^3/uL (3.29-11.43)
[2024-07-17 05:21] LABS: Alanine Aminotransferase 12 U/L (0-41); Albumin Level 3.3 g/dL (3.5-5.2); Alkaline Phosphatase 86 U/L (40-130); Anion Gap 12.3 (5-19); Aspartate Amino Transferase 17 U/L (0-40); Blood Urea Nitrogen 16 mg/dL (8-23); Calcium 9.1 mg/dL (8.5-10.5); Carbon Dioxide 29 mmol/L (22-29); Chloride 103 mmol/L (98-107); Creatinine Clr Calc Pharmacy 88.1111; Globulin 2.5 g/dL (1.3-4.6); Glucose 77 mg/dL (65-115); Magnesium 1.8 mg/dL (1.7-2.3); Osmolality Calculated 292 mOsm/kg (285-295); Phosphorus 3.6 mg/dL (2.5-4.5); Potassium 3.3 mmol/L (3.5-5.1); Sodium 141 mmol/L (136-145); Total Bilirubin 0.4 mg/dL (0.15-1.2); Total Protein 5.8 g/dL (6.6-8.7)
[2024-07-17 05:32] LABS: C Reactive Protein 16.9 mg/L (0.0-4.9); NT Pro B Type Natriuretic Pept 17015 pg/mL (0-450)
[2024-07-17] MEDS: HYDROcodone-acetaminophen 10-325 mg Tablet 1 TAB PO ×4 (06:31→20:51)
[2024-07-17] MEDS: aspirin 81 mg EC Tablet PO (08:04)
[2024-07-17] MEDS: midodrine 5 mg TABLET 10 MG PO ×2 (08:04→15:12)
[2024-07-17] MEDS: clopidogrel 75 mg Tablet PO (08:04)
[2024-07-17] MEDS: citalopram 20 mg Tablet PO (08:04)
[2024-07-17] MEDS: docusate sodium 100 mg Capsule 200 MG PO (08:04)
[2024-07-17] MEDS: FUROsemide 10 mg/mL SDV 4mL 40 MG IVP (08:07)
[2024-07-17] MEDS: clotrimazole 1% cream 30 gm 1 APPLIC TOPICAL ×2 (08:12→18:18)
--- NOTE | 2024-07-17 08:58 | XACV_ITS ---
Exam Room: 2 Ht: 135 cm Wt: 79 kg BSA: 1.78 m2 Gender: Male : 1950 Any Known Allergies: Other Exam Priority: Routine Procedure(s): Procedure Description: Diagnostic procedure Procedure Description: Aortogram Procedure Description: MELENDEZ Graft Catheterization Procedure Description: Coronary Angiography Diagnostic Cath Status: Elective Diagnostic Findings * Left Main: Chronic total occlusion, [place]: 0 flow. * Proximal Right Coronary Artery: Chronic total occlusion, [place]: 0 flow. * Bypass grafts: MELENDEZ to LAD is patent. SVG to OM is patient. * Coronary angiography shows right dominance. Conclusions 1. Patent MELENDEZ to LAD and SVG to OM. [place] arteries are occluded. 2+ aortic regurgitation seen on aortogram. 2. Patient has prior CABG. Recommendations * Aggressive guideline directed heart failure therapy. * Outpatient cardiology follow up in 2 weeks. Interventional RX Recommendation: medical therapy and/or counseling Diagnostic RX Recommendation: medical therapy and/or counseling Pressures Phase:Rest AO : 160 / 55 ( 92 ) @ 10:29:00 AM 113 / 62 ( 86 ) @ 10:38:00 AM Clinical Evaluation EBL: 5mL-10mL Procedural Details Procedure Consent Obtained. Pre-Procedure Time Out. Identified patient by full name and date of as verbalized by the patient/guarantor. Does the consent match the physician's order: Yes. Accurate & Complete Informed Consent: Yes. Inpatient/Outpatient History & Physical on Chart: Yes. If H&P is completed, is and addenduem needed: Yes. Visualize and Verify Site with Patient/Guarantor: N/A. Relevant Radiology Images available: Yes. The risks, benefits, and alternatives of sedation and/or procedure were discussed by physician. The patient agrees to continue. Procedure started. [facility] Clinical Fraility Score: 7: Severely Frail. Trust Vault Clerk Indications: LV Dysfunction/Chest Pain. Chest Pain Symptom Assessment: Atypical Angina. Cardiovascular Instability: No. Correct patient, site and procedure confirmed by cath team. PERRLA. Strong, equal hand supervisor process testing bilaterally. Lungs clear x 5 lobes. IV Site on Arrival: 20 gauge in the right upper arm. PICC line in place to the right upper arm. IV Fluids: 0.9% NaCl at KVO. 0 mL infused prior to lab support service tech. Pre Procedural Pulses: bilateral posterior tibial was Absent d/t AKA. Pre Procedural Pulses: bilateral dorsalis pedis was Absent d/t AKA. Pre Procedural Pulses: bilateral femoral was 2+. Oxygen started at 2liters/min via nasal canula. bilateral groins was prepped with chloroprep then draped in the usual sterile fashion. Physician notified. Patient's family unavailable. Equipment: 6F - Femoral. Cardiac Cath Pack. ACIST Manifold Kit Model BT 2000. Heparinized Saline (2 units/mL), 1000 mL bag. Kit, Micropuncture. Physician arrived. Baseline sample Acquired. HR: 85 BPM. Physician scrubbed in. Immediate Pre-Procedure Time Out. Correct Patient: Yes; Correct Procedure: Yes; Correct Site: Yes; Correct Patient Position: Yes; Correct Supplies: Yes; Dried Flammable Prep: Yes; Blood Products Available: N/A;. Lidocaine 1% infiltrated to the right groin. Arterial access obtained with micropuncture set. Wire unable to advance. Wire and needle out. Manual pressure held by Dr. Knutson. Arterial access obtained with micropuncture set. A 5 [place] JL4 catheter in over the standard J wire. Catheter removed over the exchange J wire. A 5 [place] JR4 catheter in over the exchange J wire. MELENDEZ to LAD visualized. Catheter removed over the exchange J wire. A 5 [place] AL1 catheter in over the exchange J wire. Multiple views taken of left coronary artery. Catheter removed over the exchange J wire. A 5 [place] Angled Pig catheter in over the exchange J wire. Aortogram performed in ADALGISA @ 12 mL/second for a total of 30 mL. Aortogram performed in ADALGISA @ 12 mL/second for a total of 30 mL. SVG to OM visualized. [place] RCA occluded. Catheter removed over the exchange J wire. A 5 [place] TIG catheter in over the exchange J wire. Catheter removed over the exchange J wire. A Right femoral angiogram was performed to determine safe placement of closure device. A Manual Compression was successful obtaining hemostatsis at the Right Femoral artery insertion site. Sheath(s) removed and manual pressure held until hemostasis was achieved. Sterile 4x4 and Op-site applied to the puncture site. No oozing or hematoma noted. Post sheath removal instructions were given and the patient verbalized understanding. Post Procedure: Pulses reassessed and unchanged. PERRLA. Strong, equal hand supervisor process testing bilaterally. No VTE prophylaxis required. Medication's Wasted: Lidocaine 1% = 10 mL. Medication's Wasted: Heparin = 1000 units . Total IV fluids: 50 mL. Post-op diagnosis: [place] RCA and LCA occluded, Patent MELENDEZ --> LAD and SVG --> OM. Medication's Wasted: Other = Fentanyl 25 mcg. Complications: none. Estimated blood loss: 5mL-10mL. Responsiveness - Normal response to verbal stimuli; alert and oriented, PERRLA. Airway - Unaffected, no intervention required; spontaneous ventilation. Circulation: W/N/L, pulses unchanged. Nausea/Vomiting: No. Procedure completed. Patient transferred by bed to ICU. Vital chart was stopped. Access Site Site: Right Femoral artery Sheath Size: 6 Fr Hemostasis Method: Manual Compression Hemostasis Success: Successful Procedure Medications Start: 10:18 AM Stop: 10:18 AM Medication: Versed Amount: 1 mg Route: I.V. Start: 10:18 AM Stop: 10:18 AM Medication: Fentanyl Amount: 25 mcg Route: I.V. Start: 10:27 AM Stop: 10:27 AM Medication: Fentanyl Amount: 25 mcg Route: I.V. Start: 10:49 AM Stop: 10:49 AM Medication: Versed Amount: 1 mg Route: I.V. Start: 10:58 AM Stop: 10:58 AM Medication: Fentanyl Amount: 25 mcg Route: I.V. I, the attending physician, have reviewed and verified all procedure medications. Yes, all medications given per verbal order History/Risk Factors Hypertension: No Dyslipidemia: Yes Peripheral Arterial Disease (PAD): Yes Myocardial Infarction ([place]): No Obesity: Yes Renal Disease: No Tobacco Use: Current/Recent(w/in 1 year) Prior Interventions PCI: Yes CABG: Yes Valve Surgery: No Report Signatures Finalized by Paul Knutson MD on 07/23/2024 12:14 PM
--- NOTE | 2024-07-17 09:02 | P.PN_ITS ---
<Statement entered by Paul Knutson M.D - 07/17/24 16:29> Patient was evaluated and cared for in conjunction with an advanced practice practitioner.? I personally examined the patient and reviewed the chart and all pertinent data including imaging, telemetry, and laboratory results.? I discussed the patient in detail with the advanced practice practitioner.? Please see? their note for progress note, testing results and agreed upon plan of care for the patient. Patient denies chest pain GENERAL: Patient is alert HEART: Regular S1 and S2 LUNGS: Clear to auscultate bilaterally. CENTRAL NERVOUS SYSTEM: Grossly nonfocal. EXTREMITIES: AKA bilaterally. ASSESSMENT AND PLAN: (1) CHF (congestive heart failure) (2) Peripheral arterial disease with history of revascularization (3) Bradycardia (4) Presence of permanent cardiac pacemaker (5) Hypotension Patient underwent cardiac catheterization today. He has poor access options as well as severe PAD. He has patent MELENDEZ to LAD and SVG to OM. [place] coronary arteries are occluded. At least moderate aortic regurgitation seen on aortogram. Echocardiogram showed mild to moderate aortic regurgitation. Medical therapy. Resume diuretic therapy tomorrow. Close I&O's. Monitor renal function. Thank you for involving us with care of this patient. We will continue to follow. please call with questions. Subjective 2 Subjective: Patient doing well today. He is euvolemic. O2 saturation 98% on room air. Blood pressure much improved 124/62. He has been NPO. He has been having some nausea but this is chronic. He is getting Protonix IV every 12 hours. At this time will take him for a left heart cath possible PCI at 10:00. Vitals/I&O/Wt Last Vital Signs Temp 97.8 F 07/17/24 04:30 Pulse 86 07/17/24 07:52 Resp 7 L 07/17/24 07:52 BP 124/62 07/17/24 07:52 Pulse Ox 98 07/17/24 06:30 O2 Del Method Room Air 07/17/24 06:30 FiO2 21 07/14/24 05:37 07/16/24 07/17/24 07/17/24 22:59 06:59 14:59 Intake Total 264.937 / 945.313 Output Total 1325 / 1325 450 / 1775 Balance -1060.063 / -379.687 -450 / -829.687 Weight last 48 hrs Weight 175 lb 14.4 oz Weight 174 lb 13.225 oz Physical Exam 2 Narrative: General: No apparent distress, healthy appearing, well nourished HENMT: normoceophalic Muskuloskeletal: bilateral AKA Lymphatic: no lymphedema noted Respiratory: Normal respiratory effort, clear to auscultation bilaterally throughout all lung shaw, no use of accessory muscles Cardio: No JVD, regular rate, regular rhythm, S1 S2 normal, no murmurs, peripheral pulses 2+ throughout Extremities: Full ROM, no cyanosis or edema, bilateral AKA Neuro: Alert and oriented x4, no focal motor deficits Psych: Affect normal, denies suicidal ideation, mental status grossly normal Skin: No rashes or lesions noted, no wounds Urinary Catheter Management: Christiansen: Cath Placed During This Visit: yes Reason for Continuing Indwelling Catheter: Accurate Measurement of Urinary Output in Critically Ill Patients Urinary Catheter Date of Insertion: 07/14/24 Urinary Catheter Time of Insertion: 08:19 Data 07/17/24 04:52 07/17/24 04:52 A&P Assessment and plan (1) CHF (congestive heart failure): Qualifiers: Heart failure chronicity: unspecified Heart failure type: unspecified Qualified Code(s): I50.9 - Heart failure, unspecified (2) Peripheral arterial disease with history of revascularization: (3) Bradycardia: (4) Presence of permanent cardiac pacemaker: (5) Hypotension: Qualifiers: Hypotension type: other hypotension type Qualified Code(s): I95.89 - Other hypotension Plan Patient has significant dysfunction. Patient has been optimized for left heart cath. His family is present. Patient and family agree to proceed with this. Will take him around 10. Life vest has been applied. Will continue GDMT by adding carvedilol back once BP allows. Attestations 2 Medical Necessity Statement*: Patient stay expected to cross 2 midnights due to acute CHF exacerbation requiring left heart cath possible PCI. Coding Level of Care Code Acute Code for Chg Fwd Diagnoses Congestive heart failure, unspecified HF chronicity, unspecified heart failure type I50.9 Heart failure chronicity: unspecified Heart failure type: unspecified Peripheral arterial disease with history of revascularization I73.9; Z98.890 Bradycardia R00.1 Presence of permanent cardiac pacemaker Z95.0 Other specified hypotension I95.89 Hypotension type: other hypotension type
[2024-07-17] MEDS: ondansetron 2 mg/ML SDV 2 mL 4 MG IVP (09:43)
[2024-07-17] MEDS: sodium chloride 0.9% 1,000 ML 50 ML IV (09:45)
[2024-07-17] MEDS: diphenhydrAMINE 50 mg Capsule PO (09:52)
--- NOTE | 2024-07-17 10:00 | W.PM.OPSUD ---
Surgery/Procedure H&P Update DATE OF PROCEDURE: July 17, 2024 DATE H&P PERFORMED: 07/14/24 H&P UPDATE INFORMATION: I have reviewed H&P completed within last 30 days, I have examined patient prior to procedure and Changes to prior documentation as noted here CHANGES TO PREVIOUS DOCUMENTATION: Patient has severely reduced LV function. he also complains of on and off chest discomfort episodes. Plan for left heart cath with possible percutaneous coronary intervention PREOP DIAGNOSIS: LV dysfunction/chest pain PRIMARY INDICATION FOR PROCEDURE: LV dysfunction/chest pain PLANNED PROCEDURE: Left heart cath with possible percutaneous coronary intervention PATIENT REASSESSED PRIOR TO SEDATION, WITH NO CHANGE NOTED: Yes PHYSICAL EXAM: alert, oriented x 3, clear to auscultation bilaterally and regular rate & rhythm AIRWAY EVAL/ANESTHESIA PLAN: normal airway, ASA III, ASA IV, Local Anesthesia, Risks, benefits & alternatives of sedation and/or procedure discussed and Patient agrees to continue as planned ADDITIONAL INFORMATION: Moderate sedation
--- NOTE | 2024-07-17 10:05 | PC.NURSE ---
Pt to labourers.
--- NOTE | 2024-07-17 11:21 | P.PCN_ITS ---
Procedure Note: Date of procedure: 07/17/24 Pre-procedure diagnosis: LV dysfunction Post-procedure diagnosis: same Procedure: Left heart cath: Occluded agdaagux left main and RCA. Patent MELENDEZ to LAD. Patent SVG to OM. Atleast moderate aortic regurgitation. Medical therapy. Performing Provider: Paul Knutson Estimated blood loss (mL): 10 Complications: None Condition: stable Disposition: ICU Coding Level of Care Code Acute Code for Quintin Ornelas
--- NOTE | 2024-07-17 13:10 | PC.NURSE ---
laborer salvage groin site: at this check dressing no longer dry, blood throughout but not soaked. A quarter sized lump. Pressure held form another 15 minutes. Area softened up but can still feel pea-sized area. NO bleeding noted. Called Dr Knutson to notify. NO answer. Called BETTYE Zhou for cardiology notified her of spontaneous hematoma incidient. Dr Knutson now on phone, notified of hematoma incident. BETTYE Zhou to come by to check.
--- NOTE | 2024-07-17 15:04 | P.PN_ITS ---
Subjective 2 Subjective: Patient was seen this morning, he is going for his cardiac catheterization this morning, denies any fevers, chills, no cough, no chest pain Vitals/I&O/Wt Last Vital Signs Temp 97.5 F L 07/17/24 11:30 Pulse 87 07/17/24 14:30 Resp 11 L 07/17/24 14:30 BP 97/63 07/17/24 14:30 Pulse Ox 95 07/17/24 14:30 O2 Del Method Room Air 07/17/24 14:30 FiO2 21 07/14/24 05:37 07/17/24 07/17/24 07/17/24 06:59 14:59 22:59 Intake Total Output Total 450 / 1775 Balance -450 / -829.687 Weight last 48 hrs Weight 79.787 kg Weight 79.3 kg Physical Exam 2 Const: COMMON NORMALS: no acute distress and patient oriented x3 Resp: COMMON NORMALS: normal respiratory effort, No retractions, No use of accessory muscles and clear to auscultation bilaterally AUSCULTATION: clear to auscultation bilaterally Cardio: COMMON NORMALS: regular rate, regular rhythm, S1 normal heart sound present and S2 normal heart sound present RATE: regular rate RHYTHM: r egular rhythm HEART SOUNDS: S1 normal heart sound present and S2 normal heart sound present GI: COMMON NORMALS: Normal to inspection, nondistended, normoactive bowel sounds present and non-tender Extremity: COMMON NORMALS: no pedal edema Neuro: COMMON NORMALS: patient oriented x3 Psych: COMMON NORMALS: mental status grossly normal Urinary Catheter Management: Christiansen: Cath Placed During This Visit: yes Reason for Continuing Indwelling Catheter: Accurate Measurement of Urinary Output in Critically Ill Patients Urinary Catheter Date of Insertion: 07/14/24 Urinary Catheter Time of Insertion: 08:19 Data 07/17/24 04:52 07/17/24 04:52 A&P Assessment and plan (1) Hypotension: Qualifiers: Hypotension type: other hypotension type Qualified Code(s): I95.89 - Other hypotension (2) Bradycardia: (3) Pleural effusion: (4) Systolic CHF, acute: (5) Bilateral pleural effusion: (6) Shock: Plan Benjamin Robles is a 74 year old male w/ 2v CABG, TAVR s/p valve replacement, CAD s/p stents, b/l AKA in 07/2023 at [facility], [place], due who presents to [facility] on 07/13/2024 for low Heart rate. # Shock, cardiogenic -EF down to 32% -Status post 3.5 L fluid bolus - Is on midodrine as outpatient, increase midodrine to 10 every 6 hours - Lactic acid within normal limits -Off Levophed - -4 L #Bradycardia -interrogate pacemaker, no acute findings -Cardiology consulted # NSTEMI CAD s/p stents, with history of CABG: Patient states 4-5 stents -Continue aspirin, Plavix -Coreg on hold -Undergo cardiac catheterization today #HLD # Systolic and diastolic CHF exacerbation - Hold all anti-hypertensives. -Strict I's and O's. -Bilateral pleural effusions - -4 L -Lasix 40 IV twice daily currently on hold with plans on cardiac cath today # Bilateral pleural effusions #Peripheral Vascular Disease # TAVR #B/l Pleural effusions #Chronic back pain despite #Hx of L-spine Surgery - Dilaudid ordered #R. Carotid Bruit - b/l Carotid endarterectomy: Patient tells me that he had a bilateral carotid endarterectomy Bilateral lower extremity amputation #Muscular dystrophy. DVT ppx: Lovenox Plan for today I cardiac catheterization today Attestations 2 Medical Necessity Statement*: Patient requires hospitalization for NSTEMI, CHF requiring cardiac cath Diagnoses Other specified hypotension I95.89 Hypotension type: other hypotension type Bradycardia R00.1 Pleural effusion J90 Systolic CHF, acute I50.21 Bilateral pleural effusion J90 Shock R57.9
[2024-07-17] MEDS: enoxaparin 40 mg/0.4 mL Syringe SUBCUT (15:12)
--- NOTE | 2024-07-17 18:29 | PC.NURSE ---
Shift summary: Pt went to quality assurance qa lab technician today. NO interventions. Right groin site is now soft, no hematoma or bleeding noted. He did develop hematoma and slight bleeding about an hour after intervention. Pressure held, area softened out. No further issues. Paced rhythm noted on monitor. NO PVCs noted today. He remains off Levophed gtt. He stayed fairly drowsy most of afternoon, therefore he did not request his pain medication, hydrocodone, like he did yesterday. He had one this am before quality assurance qa lab technician and one this afternoon. His and daughter sat at bedside most of the day. He was too drowsy to eat lunch but he is now sitting up in bed eating dinner. No Bm noted today. He had 850ml of clear yellow urnie output. Life vest is off, removed during quality assurance qa lab technician. Res, Edgardo, will be back in am to re apply.
[2024-07-17] MEDS: sennosides 8.6 mg Tablet 17.2 MG PO (20:50)
[2024-07-17] MEDS: atorvastatin 40 mg Tablet 80 MG PO (20:50)
[2024-07-18] VITALS (20 sets, daily range): BP systolic 96–136; BP diastolic 50–101; PULSE 76–95; RESP 12–22; TEMP 36.3–36.7; O2SAT 91–96; BMI 43.8
[2024-07-18] MEDS: midodrine 5 mg TABLET 10 MG PO ×2 (00:22→08:28)
[2024-07-18] MEDS: HYDROcodone-acetaminophen 10-325 mg Tablet 1 TAB PO ×5 (00:23→17:22)
[2024-07-18] MEDS: pantoprazole 40 mg SDV IVP (04:16)
[2024-07-18 04:53] LABS: Basophils # 0.1 10^3/uL (0.0-0.1); Basophils % 0.8 %; Eosinophils # 0.7 10^3/uL (0.0-0.8); Eosinophils % 9.7 %; Hematocrit 34.9 % (37-53); Lymphocytes # 2.5 10^3/uL (0.8-4.8); Lymphocytes % 34.3 %; Mean Corpuscular HGB Conc 31.5 g/dL (30-55); Mean Corpuscular Hemoglobin 28.1 pg (27-33); Mean Corpuscular Volume 89.3 fl (82-101); Mean Platelet Volume 9.4 fL (7.4-10.4); Monocytes # 0.7 10^3/uL (0.2-0.9); Monocytes % 9.3 %; Neutrophils # 3.38 10^3/uL (1.8-7.7); Neutrophils % 45.6 %; Nucleated Red Blood Cells % 0 %; Platelet Count 189 10^3/cmm (157-399); Red Blood Count 3.91 10^6/uL (3.85-5.65); Red Cell Distribution Width 15.9 % (12.1-15.1); White Blood Count 7.41 10^3/uL (3.29-11.43)
[2024-07-18 05:24] LABS: NT Pro B Type Natriuretic Pept 10773 pg/mL (0-450)
[2024-07-18 05:26] LABS: Alanine Aminotransferase 12 U/L (0-41); Albumin Level 3.3 g/dL (3.5-5.2); Alkaline Phosphatase 89 U/L (40-130); Anion Gap 15.4 (5-19); Aspartate Amino Transferase 19 U/L (0-40); Blood Urea Nitrogen 19 mg/dL (8-23); Calcium 9.1 mg/dL (8.5-10.5); Carbon Dioxide 27 mmol/L (22-29); Chloride 104 mmol/L (98-107); Creatinine Clr Calc Pharmacy 88.3244; Globulin 2.2 g/dL (1.3-4.6); Glucose 68 mg/dL (65-115); Osmolality Calculated 297 mOsm/kg (285-295); Phosphorus 4.8 mg/dL (2.5-4.5); Potassium 3.4 mmol/L (3.5-5.1); Sodium 143 mmol/L (136-145); Total Bilirubin 0.4 mg/dL (0.15-1.2); Total Protein 5.5 g/dL (6.6-8.7)
[2024-07-18] MEDS: potassium chloride ER 20 mEq Tablet 40 MEQ PO (08:27)
[2024-07-18] MEDS: FUROsemide 40 mg Tablet PO (08:28)
[2024-07-18] MEDS: citalopram 20 mg Tablet PO (08:32)
[2024-07-18] MEDS: clopidogrel 75 mg Tablet PO (08:32)
[2024-07-18] MEDS: aspirin 81 mg EC Tablet PO (08:32)
[2024-07-18] MEDS: docusate sodium 100 mg Capsule 200 MG PO (08:32)
[2024-07-18] MEDS: clotrimazole 1% cream 30 gm 1 APPLIC TOPICAL (08:33)
--- NOTE | 2024-07-18 09:29 | PM.DCS ---
Discharge Providers Date of Admission: 07/13/24 21:17 Date of Discharge: July 18, 2024 Attending Provider at Admission: Vida Thomas MD Attending Provider at Discharge: Ramy Lee MD Diagnoses at Discharge Discharge Diagnosis (1) Hypotension: Status: Acute Qualifiers: Hypotension type: other hypotension type Qualified Code(s): I95.89 - Other hypotension (2) Bradycardia: Status: Acute (3) Pleural effusion: Status: Acute (4) Systolic CHF, acute: Status: Acute (5) Bilateral pleural effusion: Status: Acute (6) Shock: Status: Acute Reason for Visit Reason for Visit: migdalia; hypotension Hospital Course Hospital Course This is a 74-year-old male with a past medical history of bilateral above-knee amputations, history of two-vessel CABG, TAVR, CAD, who presents [facility] due to concerns for feeling weak, bradycardia Patient was admitted to [facility] for NSTEMI, cardiology was consulted, underwent cardiac catheterization, no evidence of obstructive CAD, discharged on aspirin, Plavix, statin with a close follow-up with primary care provider and cardiology as outpatient During his hospitalization the patient was found to have systolic diastolic CHF exacerbation, with bilateral pleural effusions requiring IV diuresis, overall clinically improved diuresed over 4 L. Will be discharged Lasix therapy potassium replacement therapy with close follow-up with cardiology as outpatient During his hospitalization he was found to have shock, likely component of cardiogenic shock EF down to 32%, with IV diuresis, overall clinically improved, continue midodrine as outpatient For bradycardia concerns, no significant telemetry events, cardiology consulted pacemaker interrogated, no significant events observed. Follow-up with cardiology as outpatient LifeVest placed on discharge Physical Exam Const: COMMON NORMALS: no acute distress and patient oriented x3 Resp: COMMON NORMALS: normal respiratory effort, No retractions, No use of accessory muscles and clear to auscultation bilaterally AUSCULTATION: clear to auscultation bilaterally Cardio: COMMON NORMALS: regular rate, regular rhythm, S1 normal heart sound present and S2 normal heart sound present RATE: regular rate RHYTHM: regular rhythm HEART SOUNDS: S1 normal heart sound present and S2 normal heart sound present GI: COMMON NORMALS: Normal to inspection, nondistended, normoactive bowel sounds present and non-tender Extremity: NARRATIVE EXTREMITY EXAM: Bilateral lower extremity amputation Neuro: COMMON NORMALS: patient oriented x3 Psych: COMMON NORMALS: mental status grossly normal Urinary Catheter Management: Christiansen: Cath Placed During This Visit: yes Reason for Continuing Indwelling Catheter: Accurate Measurement of Urinary Output in Critically Ill Patients Urinary Catheter Date of Insertion: 07/14/24 Urinary Catheter Time of Insertion: 08:19 Discharge Data Studies Completed and Pending Completed Studies During Hospitalization Category Date Time Status CTA chest [CT angio chest PE protcl 90752] Stat Cat Scan 07/13/24 19:14 Completed CXRP [XR chest 1V portable [id number]] Routine Exams 07/14/24 10:00 Completed XR chest 1V portable [id number] Stat Exams 07/13/24 17:17 Completed XR chest 1V portable [id number] Stat Exams 07/14/24 07:33 Completed CV. 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 Prior TAVR is in appropriate position. 2. No pulmonary emboli. 3. Large bilateral pleural effusions. COMMENTS: The presence of pulmonary emphysema on CT is an independent risk factor for lung cancer. In the absence of a history or active diagnosis of lung cancer, it is recommended that this patient with emphysema be evaluated for enrollment in a low dose CT lung cancer screening program. Chest X-Ray 07/14/24 10:00 Impression: Satisfactory insertion of right PICC line. Laboratory Results WBC 7.41 10^3/uL (3.29-11.43) 07/18/24 04:36 RBC 3.91 10^6/uL (3.85-5.65) 07/18/24 04:36 Hgb 11.00 g/dL (11.27-16.99) L 07/18/24 04:36 Hct 34.9 % (37-53) L 07/18/24 04:36 MCV 89.3 fl (82-101) 07/18/24 04:36 MCH 28.1 pg (27-33) 07/18/24 04:36 MCHC 31.5 g/dL (30-55) 07/18/24 04:36 RDW 15.9 % (12.1-15.1) H 07/18/24 04:36 Plt Count 189 10^3/cmm (157-399) 07/18/24 04:36 MPV 9.4 fL (7.4-10.4) 07/18/24 04:36 Neut % (Auto) 45.6 % 07/18/24 04:36 Lymph % (Auto) 34.3 % 07/18/24 04:36 [place] % (Auto) 9.3 % 07/18/24 04:36 Eos % (Auto) 9.7 % 07/18/24 04:36 Baso % (Auto) 0.8 % 07/18/24 04:36 Neut # (Auto) 3.38 10^3/uL (1.8-7.7) 07/18/24 04:36 Lymph # (Auto) 2.5 10^3/uL (0.8-4.8) 07/18/24 04:36 [place] # (Auto) 0.7 10^3/uL (0.2-0.9) 07/18/24 04:36 Eos # (Auto) 0.7 10^3/uL (0.0-0.8) 07/18/24 04:36 Baso # (Auto) 0.1 10^3/uL (0.0-0.1) 07/18/24 04:36 Nucleated RBC % (auto) 0 % 07/18/24 04:36 Nucleated RBCs # 0.0 /100WBC 07/18/24 04:36 PT 14.10 SECONDS (12.1-14.9) 07/15/24 03:45 INR 1.06 (0.8-1.2) 07/15/24 03:45 APTT 36.7 SECONDS (23.9-36.7) 07/15/24 03:45 Specimen Type Venous 07/14/24 09:27 Sample Site Radial, right 07/14/24 09:27 ABG pH 7.41 (7.35-7.45) 07/14/24 09:27 ABG pCO2 32.3 mmHg (35-45) L 07/14/24 09:27 ABG pO2 31.3 mmHg (80.0-100.0) L* 07/14/24 09:27 ABG PO2/FiO2 Ratio 149 07/14/24 09:27 ABG HCO3 20.6 mmol/L (22-26) L 07/14/24 09:27 ABG Base Excess -3.2 mmol/L (-2.0-2.0) L 07/14/24 09:27 Oskar Test Pos 07/14/24 09:27 Hematocrit 35.5 % (42-52) L 07/14/24 09:27 O2 Delivery Device Room air 07/14/24 09:27 FiO2 21.0 % 07/14/24 09:27 Co Founder ID Cak 07/14/24 09:27 Sodium 143 mmol/L (136-145) 07/18/24 04:36 Potassium 3.4 mmol/L (3.5-5.1) L 07/18/24 04:36 Chloride 104 mmol/L (98-107) 07/18/24 04:36 Carbon Dioxide 27 mmol/L (22-29) 07/18/24 04:36 Anion Gap 15.4 (5-19) 07/18/24 04:36 BUN 19 mg/dL (8-23) 07/18/24 04:36 Creatinine 0.7 mg/dL (0.7-1.2) 07/18/24 04:36 GFR Calculation Not Reportable 07/18/24 04:36 Glucose 68 mg/dL (65-115) 07/18/24 04:36 Calculated Osmolality 297 mOsm/kg (285-295) H 07/18/24 04:36 Lactic Acid 0.9 mmol/L (0.5-2.2) 07/14/24 08:37 Calcium 9.1 mg/dL (8.5-10.5) 07/18/24 04:36 Phosphorus 4.8 mg/dL (2.5-4.5) H 07/18/24 04:36 Magnesium 2.0 mg/dL (1.7-2.3) 07/18/24 04:36 Total Bilirubin 0.4 mg/dL (0.15-1.2) 07/18/24 04:36 AST 19 U/L (0-40) 07/18/24 04:36 ALT 12 U/L (0-41) 07/18/24 04:36 Alkaline Phosphatase 89 U/L (40-130) 07/18/24 04:36 Troponin T Baseline 37 ng/L (0-15) H 07/14/24 08:37 Troponin T 120 Minute 39.09 ng/L (0-15) H 07/14/24 11:00 Delta Troponin T 2.09 ABS# (0-10) 07/14/24 11:00 Troponin T Hi Sens 6Hr 39.32 ng/L (0-15) H 07/14/24 14:29 Troponin T Hi Sens 6Hr Delta 2.32 ng/L (0-12) 07/14/24 14:29 C-Reactive Protein 16.9 mg/L (0.0-4.9) H 07/17/24 04:52 NT-Pro-B Natriuret Pep 72170 pg/mL (0-450) H 07/18/24 04:36 Total Protein 5.5 g/dL (6.6-8.7) L 07/18/24 04:36 Albumin 3.3 g/dL (3.5-5.2) L 07/18/24 04:36 Globulin 2.2 g/dL (1.3-4.6) 07/18/24 04:36 Urine Color Yellow (Yellow) 07/13/24 23:10 Urine Appearance Clear (CLEAR) 07/13/24 23:10 Urine pH 5.5 (5-7) 07/13/24 23:10 Ur Specific [place] 1.020 (1.005-1.030) 07/13/24 23:10 Urine Protein Negative (Negative) 07/13/24 23:10 Urine Glucose (UA) Negative (Normal) 07/13/24 23:10 Urine Ketones Negative (Negative) 07/13/24 23:10 Urine Blood Negative (Negative) 07/13/24 23:10 Urine Nitrate Negative (Negative) 07/13/24 23:10 Urine Bilirubin Negative (Negative) 07/13/24 23:10 Urine Urobilinogen 1.0 mg/dL (Negative) 07/13/24 23:10 Ur Leukocyte Esterase Negative (Negative) 07/13/24 23:10 Urine RBC 0-2 /hpf (0-2) 07/13/24 23:10 Urine WBC 0-5 /hpf (0-5) 07/13/24 23:10 Ur Squamous Epith Cells 0-5 /hpf (0-5) 07/13/24 23:10 Amorphous Sediment Not Reportable 07/13/24 23:10 Urine Bacteria None seen /hpf (NONE) 07/13/24 23:10 Hyaline Casts 0-4 /lpf H 07/13/24 23:10 Coronavirus (PCR) Negative (Negative) 07/13/24 18:36 Influenza A (PCR) Negative (Negative) 07/13/24 18:36 Influenza Type B (PCR) Negative (Negative) 07/13/24 18:36 RSV (PCR) Negative (Negative) 07/13/24 18:36 Vitals Last Vital Signs Temp 97.8 F 07/18/24 04:00 Pulse 83 07/18/24 06:00 Resp 12 07/18/24 06:00 BP 124/50 07/18/24 06:00 Pulse Ox 94 07/18/24 06:00 O2 Del Method Room Air 07/18/24 06:00 FiO2 21 07/14/24 05:37 Discharge Plan Discharge Patient Disposition: Home Condition: Stable Prescriptions: New potassium chloride [Klor-Con M20] 20 mEq tablet,ER particles/crystals 20 meq PO DAILY 30 Days Qty: 30 0RF Continued citalopram 20 mg tablet 20 mg PO DAILY famotidine 40 mg tablet 40 mg PO DAILY midodrine 5 mg tablet 5 mg PO TID Rx Instructions: hold if sbp > 120 hydrocodone-acetaminophen 10-325 mg tablet 2 tab PO Q6H PRN (Reason: Pain) tamsulosin 0.4 mg capsule 0.4 mg PO DAILY ezetimibe 10 mg tablet 10 mg PO BEDTIME rosuvastatin 40 mg tablet 40 mg PO BEDTIME fenofibrate 160 mg tablet 160 mg PO BEDTIME furosemide 40 mg Tablet 40 mg PO DAILY clopidogrel 75 mg tablet 75 mg PO DAILY aspirin 81 mg Tablet,Delayed Release (Dr/Ec) 81 mg PO DAILY pentoxifylline 400 mg tablet extended release 400 mg PO TID pantoprazole [Protonix] 40 mg Tablet,Delayed Release (Dr/Ec) 40 mg PO DAILY nitroglycerin [Nitrostat] 0.4 mg Tablet, Sublingual 0.4 mg sublingual Q5MIN PRN (Reason: Chest Pain) albuterol 90 mcg/actuation Aerosol 90 mcg INHALATION Q6H PRN (Reason: Shortness Of Breath Or Wheezing) diphenhydramine-acetaminophen [Tylenol PM Extra Strength] 25-500 mg Tablet 1 tab PO BEDTIME PRN (Reason: Insomnia) ondansetron 4 mg Tablet,Disintegrating 4 mg PO Q4H PRN (Reason: Nausea And Vomiting) pregabalin 100 mg capsule 100 mg PO TID ferrous sulfate 324 mg (65 mg iron) Tablet,Delayed Release (Dr/Ec) 324 mg PO DAILY menthol-zinc oxide [Calmoseptine] 0.44-20.6 % Ointment 1 applic TOPICAL DAILY PRN (Reason: skin irritation) tiotropium bromide 2.5 mcg/actuation Mist 2 puff INHALATION DAILY Discontinued carvedilol 3.125 mg tablet 3.125 mg PO BID ranolazine [Ranexa] 500 mg Tablet Extended Release 12 Hr 500 mg PO BID Discharge Orders: Discharge Order (Routine); Ordered 07/18/24 Ordered By: Ramy Lee Referrals: Anup Moore MD [Physician] - 1 week Discharge Diet: Cardiac Discharge Activity: Resume usual activity Patient Instructions: Potassium Supplement (By mouth) (Klor-Con, Klor-Con 10, K-Tab, K-Vescent), Heart Failure (DC), Syncope (DC), Fall Prevention for Older Adults (DC), Bradycardia (DC), Fall Prevention (DC), CHF Stoplight, Chest Pain Stoplight, Opioid Safety, Post Angiogram Home Care Instructions Activity Restrictions/Additional Instructions: -if any chest pain please go to emergency room -monitor for bradycardia, if recurrent episodes please come back to the emergency room -if you gain more than 3lbs or are more short of breath or more edema, take extra lasix 40mg in the afternoon with 20 of klor con for 3 days in a row. If after that if you are still sob or edema then gop to emergency room Discharge Attestations Time Spent in Discharge Care*: greater than 30 min Quality Metrics Clinical Quality Measures [ No reported AMI, CVA or VTE this stay] Coding Level of Care Code 50504 Total time (in minutes) for Discharge: 45 Diagnoses Other specified hypotension I95.89 Hypotension type: other hypotension type Bradycardia R00.1 Pleural effusion J90 Systolic CHF, acute I50.21 Bilateral pleural effusion J90 Shock R57.9
--- NOTE | 2024-07-18 10:10 | PC.NURSE ---
Kuldip OSORIO'marco a as order per Dr. Lee. Tolerated well.
--- NOTE | 2024-07-18 10:43 | P.PN_ITS ---
<Statement entered by Paul Knutson M.D - 07/18/24 17:58> Patient was evaluated and cared for in conjunction with an advanced practice practitioner.? I personally examined the patient and reviewed the chart and all pertinent data including imaging, telemetry, and laboratory results.? I discussed the patient in detail with the advanced practice practitioner.? Please see? their note for progress note, testing results and agreed upon plan of care for the patient. Patient feeling well. No chest pain. GENERAL: Patient is alert HEART: Regular S1 and S2 LUNGS: Clear to auscultate bilaterally. CENTRAL NERVOUS SYSTEM: Grossly nonfocal. EXTREMITIES: AKA bilaterally. ASSESSMENT AND PLAN: (1) CHF (congestive heart failure) (2) Peripheral arterial disease with history of revascularization (3) Bradycardia (4) Presence of permanent cardiac pacemaker (5) Hypotension Medical management for CAD. PO diuretic therapy. Thank you for involving us with care of this patient. Outpatient cardiology follow up. please call with questions. Subjective 2 Subjective: Patient is doing well today. Left heart cath showed occluded [place]oux left main and RCA. Patent MELENDEZ to LAD. Patent SVG to OM. At least moderate aortic regurgitation. He is s/p TAVR. Blood pressure has remained stable off of levophed. Life vest has been placed. Medications: Reviewed: Yes Vitals/I&O/Wt Last Vital Signs Temp 97.8 F 07/18/24 04:00 Pulse 83 07/18/24 06:00 Resp 12 07/18/24 06:00 BP 124/50 07/18/24 06:00 Pulse Ox 94 07/18/24 06:00 O2 Del Method Room Air 07/18/24 06:00 FiO2 21 07/14/24 05:37 07/17/24 07/18/24 07/18/24 22:59 06:59 14:59 Intake Total 750 / 780 Output Total 850 / 850 250 / 1100 Balance -100 / -70 -250 / -320 Weight last 48 hrs Weight 175 lb 4 oz Weight 175 lb 14.4 oz Physical Exam 2 Narrative: General: No apparent distress, healthy appearing, well nourished HENMT: normoceophalic Muskuloskeletal: bilateral AKA Lymphatic: no lymphedema noted Respiratory: Normal respiratory effort, clear to auscultation bilaterally throughout all lung shaw, no use of accessory muscles Cardio: No JVD, regular rate, regular rhythm, S1 S2 normal, no murmurs, peripheral pulses 2+ throughout Extremities: Full ROM, no cyanosis or edema, bilateral AKA Neuro: Alert and oriented x4, no focal motor deficits Psych: Affect normal, denies suicidal ideation, mental status grossly normal Skin: No rashes or lesions noted, no wounds Urinary Catheter Management: Christiansen: Cath Placed During This Visit: yes Reason for Continuing Indwelling Catheter: Accurate Measurement of Urinary Output in Critically Ill Patients Urinary Catheter Date of Insertion: 07/14/24 Urinary Catheter Time of Insertion: 08:19 Data 07/18/24 04:36 07/18/24 04:36 A&P Assessment and plan (1) CHF (congestive heart failure): Qualifiers: Heart failure chronicity: unspecified Heart failure type: unspecified Qualified Code(s): I50.9 - Heart failure, unspecified (2) Peripheral arterial disease with history of revascularization: (3) Bradycardia: (4) Presence of permanent cardiac pacemaker: (5) Hypotension: Qualifiers: Hypotension type: other hypotension type Qualified Code(s): I95.89 - Other hypotension Plan Patient is doing well. From a cardiology standpoint recommend restarting oral Lasix and home dose carvedilol. At this time we are unable to start Entresto due to patient's blood pressure. Will continue with goal directed medical therapy as patient's blood pressure allows. He will see us in 1 week. He will need another echocardiogram in 3 months to evaluate for possible need for defibrillator placement. Recommend continue dual antiplatelet therapy. Patient's heart cath showed at least moderate aortic regurg. If the patient continues to have issues with heart failure exacerbations despite medical therapy, CHARLENE may be considered in the future. Attestations 2 Medical Necessity Statement*: Ready for discharge from cardiology standpoint. Coding Level of Care Code Acute Code for [facility] Fwd Diagnoses Congestive heart failure, unspecified HF chronicity, unspecified heart failure type I50.9 Heart failure chronicity: unspecified Heart failure type: unspecified Peripheral arterial disease with history of revascularization I73.9; Z98.890 Bradycardia R00.1 Presence of permanent cardiac pacemaker Z95.0 Other specified hypotension I95.89 Hypotension type: other hypotension type
--- NOTE | 2024-07-18 10:45 | PC.NURSE ---
Edgardo Genao RN to bedside to replace life vest and instructions given.
--- NOTE | 2024-07-18 11:57 | PC.SOCIAL ---
IMM Update pg 2 of IMM updated and reviewed w/ patient. Copy provided and copy dated, initialed and placed in chart.
--- NOTE | 2024-07-18 17:26 | PC.NURSE ---
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 Patient has been frustrated waiting on EMS to pick him up. Currently patient does not have his life vest on, explained to patient the importance of wearing life vest, explained to patient that if he has a lethal arrhythmia and he is not wearing the life vest then he may . Patient states I don't care, I want it off, it is hurting my back . Notified Dr. Lee of patients refusal to wear life vest and patient wanting to talk to Dr. Lee because he lied to him and told him that he would leave at 1200. Explained to patient that he was discharged at that time and we were just waiting on the ambulance to get here to pick him up. [facility] called multiple times though the day to get an update on arrival time. Patient called 911 stating that he has been waiting all day for his ride and needs them to come and get him. updated, Dr. Lee to bedside.
== END 2024-07-18 17:38 | disposition home health service (06) | DRG 280 ==
LOC: ER 21:26 → CSU 21:31 → ICU 07-14 08:00
PROVIDERS: Internal Medicine; Admitting Provider Internal Medicine; Emergency Provider Emergency Medicine; Visit Provider Family Medicine
PROC: 4A023N7 Measurement of Cardiac Sampling and Pressure, Left Heart, Percutaneous Approach (ICD-10-PCS; principal; 2024-07-17 10:00)
DX: I21.4 Non-ST elevation (NSTEMI) myocardial infarction (principal); I50.23 Acute on chronic systolic (congestive) heart failure; R57.0 Cardiogenic shock; I95.9 Hypotension, unspecified; I11.0 Hypertensive heart disease with heart failure; R00.1 Bradycardia, unspecified; I25.10 Atherosclerotic heart disease of native coronary artery without angina pectoris; E78.5 Hyperlipidemia, unspecified; G89.29 Other chronic pain; M54.9 Dorsalgia, unspecified; R09.89 Other specified symptoms and signs involving the circulatory and respiratory systems; G71.00 Muscular dystrophy, unspecified; F17.200 Nicotine dependence, unspecified, uncomplicated; J44.9 Chronic obstructive pulmonary disease, unspecified; I73.9 Peripheral vascular disease, unspecified; I35.1 Nonrheumatic aortic (valve) insufficiency; Z89.612 Acquired absence of left leg above knee; Z89.611 Acquired absence of right leg above knee; Z95.1 Presence of aortocoronary bypass graft; Z95.5 Presence of coronary angioplasty implant and graft; Z95.2 Presence of prosthetic heart valve; Z95.0 Presence of cardiac pacemaker; Z79.82 Long term (current) use of aspirin; Z79.02 Long term (current) use of antithrombotics/antiplatelets
CPT/HCPCS: 36415; 36573; 36592; 36600; 51702; 71045; 71275; 80048; 80053; 81001; 82803; 83605; 83735; 83880; 84100; 84484; 85025; 85610; 85730; 86140; 87040; 87637; 93005; 93306; 93459; 94664; 96372; 96374; 96376; 97161; 99152; 99153; 99232; 99233; 99239; 99254; 99285; A9270; C1751; C1769; C1887; C1894; J1171; J1265; J1644; J1650; J1940; J2250; J2405; J2470; J3010; J7030; J7040; Q0163; Q9967